=== PATIENT | female | born 1965 | race Caucasian/White ===

== ENCOUNTER → 2020-03-23 08:57 | Outpatient (BNVA) | payer MEDICARE, SELFPAY | PROVIDERS: Family Provider Nurse Practitioner; PCP Nurse Practitioner Family; Visit Provider Emergency Medicine | DX: Z20.828 Contact with and (suspected) exposure to other viral communicable diseases (principal) | CPT/HCPCS: 87635 ==

== ENCOUNTER → 2022-09-30 13:14 | Outpatient (BNVA) | payer MEDICARE, MEDICAID, SELFPAY | PROVIDERS: PCP Nurse Practitioner Family; Visit Provider Internal Medicine | DX: E04.1 Nontoxic single thyroid nodule (principal) | CPT/HCPCS: 71046 ==

== ENCOUNTER 2023-11-11 20:36 | Emergency (ER) | payer MEDICARE, MEDICAID, SELFPAY ==
[2023-11-11 20:37] VITALS: BP 155/76; PULSE 130; RESP 18; TEMP 37.2; O2SAT 93; BMI 30.7
--- NOTE | 2023-11-11 21:03 | XRR_ITS ---
PROCEDURE INFORMATION: Exam: XR Cervical Spine Exam date and time: 11/11/2023 9:11 PM Age: 58 years old Clinical indication: Neck pain; Prior surgery; Surgery date: 6+ months; Surgery type: C. Spine; Additional info: Pain no trauma TECHNIQUE: Imaging protocol: Radiologic exam of the cervical spine. Views: 2 or 3 views. COMPARISON: MR cervical spin wo con* [id number] 11/28/2017 1:46 PM FINDINGS: Bones/joints: Surgical changes of C3-C4 and C5-C7 ACDF with anatomic alignment and no hardware complications. Soft tissues: Unremarkable. XR/XR cervical spine 3V* [id number] IMPRESSION: No acute fracture or dislocation. Surgical changes of ACDF with no complications.
[2023-11-11] MEDS: ketorolac 30 mg/mL INJ IVP (21:06)
--- NOTE | 2023-11-11 21:06 | ED_ITS ---
HPI - Nausea/Vomiting/Diarrhea General: Chief complaint: Nausea/Vomiting/Diarrhea Stated complaint: generalized pain Time Seen by Provider: 11/11/23 20:47 History of Present Illness: Patient presents to the ER today with complaints of nausea vomiting neck pain and headache that started approximately 1 hour after she saw a possible brown recluse spider in her shoe she is on for sure if she got bit by a spider or not. 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 Patient also complains of nausea vomiting and pain all over her body. Patient denies any fevers chills coughs colds sore throats. Patient does admit to snorting meth yesterday evening. Review of Systems General: Reports: 10 or more systems reviewed and unremarkable except in HPI and below PFSH ED PFSH: Social History Smoking and tobacco/nicotine status: current every day tobacco/nicotine user cigarettes Alcohol intake: never Substance/Drug Use: never Physical Exam Const: COMMON NORMALS: no acute distress, average body habitus, patient oriented x3, no limitations, healthy appearing, alert and well nourished OTHER: Histrionic in appearance with moaning and crying out and yelling stating she is in so much pain even when the nurses are attempting her IV HENMT: COMMON NORMALS: normocephalic, atraumatic, hearing grossly normal bilaterally, external ears normal, Normal external nose present, moist oral mucous membranes and oropharynx normal HEAD & SCALP: normocephalic and atraumatic NOSE: Normal external nose present EXTERNAL EAR: Yes external ears normal Eye: COMMON NORMALS: Equal, round and reactive pupils present, EOMs intact bilaterally, conjunctivae normal and no scleral icterus CONJUNCTIVA: Yes conjunctivae normal PUPIL: Yes Equal, round and reactive pupils present Neck/C-Spine: COMMON NORMALS: full ROM, no lymphadenopathy, supple, no meningeal signs, no JVD and Thyroid normal THYROID: Thyroid normal OTHER: Muscles are soft None spastic no vertebral point tenderness Chest: COMMONS NORMALS: normal inspection of the chest and normal palpation of entire chest wall Resp: COMMON NORMALS: normal respiratory effort, No retractions, No use of accessory muscles and clear to auscultation bilaterally AUSCULTATION: clear to auscultation bilaterally Cardio: COMMON NORMALS: no JVD, regular rate, regular rhythm, S1 normal heart sound present, S2 normal heart sound present, No gallops present (Cardio), No clicks present (Cardio), No murmurs present (Cardio) and No rub (Cardio) RATE: regular rate RHYTHM: regular rhythm HEART SOUNDS: S1 normal heart sound present and S2 normal heart sound present GI: COMMON NORMALS: Normal to inspection, nondistended, normoactive bowel sounds present, Soft to palpation, non-tender, No hepatosplenomegaly present and no masses PALPATION: Yes Soft to palpation and Yes No hepatosplenomegaly present Extremity: NARRATIVE EXTREMITY EXAM: All toes on right foot normal in appearance no redness swelling erythema drainage or obvious puncture bite evelyn Neuro: COMMON NORMALS: patient oriented x3 SENSORIUM/ORIENTATION: Yes alert MENINGEAL SIGNS: Yes no meningeal signs Course Vital Signs: Vital signs: Vital Signs Temperature 99.0 F 11/11/23 20:37 Pulse Rate 109 H 11/11/23 22:00 Respiratory Rate 18 11/11/23 22:00 Blood Pressure 92/52 11/11/23 22:00 Pulse Oximetry 96 11/11/23 22:00 Oxygen Delivery Me thod Room Air 11/11/23 20:37 MDM - Nausea/Vomiting/Diarrhea Medical Decision Making Physical exam was performed, cervical spine x-ray was performed with no acute changes, patient was given Toradol, Reglan, and Norflex, patient said these helped her pain the right before discharge she did ask for Tylenol which was given to her. Patient will be discharged home on meloxicam and promethazine and is to follow-up with her PCP within 7 days. Differential Diagnosis Unlikely traveler's diarrhea, food poisoning, gastroenteritis, clostridium difficile infection, drug-induced nausea and vomiting or dehydration Medical Records I reviewed the patient's medical records. Lab Data I reviewed the patient's lab results. Radiology Impressions Cervical Spine X-Ray 11/11/23 21:03 IMPRESSION: No acute fracture or dislocation. Surgical changes of ACDF with no complications. All radiology interpretation(s) finalized by discharge Discharge Plan Discharge Patient Disposition: Home Clinical Impression: Acute neck pain, Nausea & vomiting Condition: Stable Prescriptions: New meloxicam 7.5 mg tablet 7.5 mg PO .Twice daily Qty: 14 0RF promethazine 25 mg tablet 25 mg PO Q6H PRN (Reason: nausea and vomiting) Qty: 14 0RF No Action ibuprofen 800 mg tablet 800 mg PO TID PRN (Reason: pain) Qty: 20 0RF Discharge Orders: Discharge ED (Routine); Ordered 11/11/23 Ordered By: Johnny Farley Referrals: Richards,[facility]ome LEAD GENERATION REPRESENTATIVE [Primary Care Provider] - 1 week Patient Instructions: Pain Management, Neck Pain (ED), Acute Nausea and Vomiting (ED) Activity Restrictions/Additional Instructions: Your x-ray showed no acute changes, physical exam did not show any obvious bite or infection to your toe. You are given pain medicine, muscle relaxers and nausea medicine in the ER. As well as prescription sent to your pharmacy. Please take these as directed. Please follow-up with your family practice physician within the next 7 days for further evaluation and treatment. Coding Level of Care Code ED Marketing Analytics Lead for Ryan Giang
[2023-11-11] MEDS: metoclopramide 5 mg/mL SDV 2 mL 10 MG IVP (21:08)
[2023-11-11] MEDS: orphenadrine 30 mg/mL Inj 2 mL 60 MG IVP (21:09)
[2023-11-11 21:13] VITALS: BP 99/63; PULSE 130; RESP 20; O2SAT 95
[2023-11-11 21:30] VITALS: BP 95/74; PULSE 119; RESP 18; O2SAT 95
[2023-11-11 22:00] VITALS: BP 92/52; PULSE 109; RESP 18; O2SAT 96
[2023-11-11] MEDS: acetaminophen 500 mg Tablet 1000 MG PO (23:04)
== END 2023-11-11 23:19 | disposition home or self-care (01) ==
PROVIDERS: Emergency Provider Emergency Medicine; PCP Nurse Practitioner Family
DX: M54.2 Cervicalgia (principal); R11.2 Nausea with vomiting, unspecified; F17.210 Nicotine dependence, cigarettes, uncomplicated
CPT/HCPCS: 72040; 96374; 96375; 99284; J1885; J2360; J2765

== ENCOUNTER → 2024-05-17 19:25 | Outpatient (BNVA) | payer OTHER, MEDICAID, SELFPAY | PROVIDERS: PCP Nurse Practitioner Family | DX: R39.9 Unspecified symptoms and signs involving the genitourinary system (principal) | CPT/HCPCS: 81000 ==

== ENCOUNTER → 2024-06-26 18:10 | Outpatient (BNVA) | payer OTHER, SELFPAY | PROVIDERS: PCP Nurse Practitioner Family; Visit Provider Emergency Medicine | DX: R39.9 Unspecified symptoms and signs involving the genitourinary system (principal); Z72.51 High risk heterosexual behavior | CPT/HCPCS: 81000; 87086; 87491; 87591; 87661 ==

== ENCOUNTER 2025-02-25 13:00 | Emergency (ER) | payer MEDICARE, SELFPAY ==
--- OUTSIDE RECORDS SUMMARY | 2024-04-17 04:00 | XMS_ITS ---
Author Organization [facility] Address [address] [place] [address] Care Team Providers Care Coffin Maker Name Role Phone FIDELINA SANTOS MD Primary Care Provider Unavailabl e Sesar Capps Unavailable Migration, Provider Unavailable Unavailable REASON FOR VISIT EMR-Keron Encounters Encounter Location Date Provider Diagnosis Migrated_Facility 0 0 04/17/2024 Provider Migration Plan Of Treatment No Information Progress Notes * BERT BUCK MDOB:1965 ( 59 yo F)Acc No.[id number]:04/17/2024 Patient: Reece RENZO BERT Aram :1965 A ge:58 Y S ex:Female Address:[address] [place] [phone] Subjective: * Chief Complaints: * E MR-Keron * * Date:
--- OUTSIDE RECORDS SUMMARY | 2024-04-18 04:00 | XMS_ITS ---
Author Organization [facility] Address [address] [place] [address] Care Team Providers Care Upholstery Auto Trimmer Name Role Phone FIDELINA SANTOS MD Primary Care Provider Unavailabl e Sesar Capps Unavailable Migration, Provider Unavailable Unavailable Allergies Allergen (clinical drug ingredient) Drug/Non Drug Allergy documented on EMR Reaction Allergy Type Onset Date Status simvastatin Simvastatin , Drug Allergy Act bety REASON FOR VISIT EMR-Keron Encounters Encounter Location Date Provider Diagnosis Migrated_Facility 0 0 04/18/2024 Provider Migration Plan Of Treatment No Information Progress Notes * BERT BUCK MDOB:1965 ( 59 yo F)Acc No.[id number]:04/18/2024 Patient: Reece MULLER BERT M :1965 A ge:58 Y S ex:Female Address:[address] [place] [phone] Subjective: * Chief Complaints: * E MR-Keron * Allergies: S imvastatin: , - Allergy * * Date:
--- OUTSIDE RECORDS SUMMARY | 2024-06-18 18:30 | XMS_ITS ---
Author Organization [facility] Address [address] [address] Care Team Providers Care Dross Puller Name Role Phone [facility] Unavailable [phone] REASON FOR VISIT Sexual Health / Urinary, [...] Temperature Encounters Encounter Location Date Provider Diagnosis [facility] [address] [place] [address] 06/18/2024 [facility] Assessments Encounter Date [...] Notes * Melissa AYALADOB:1965 (59 yo F)Acc No.[id number]:06/18/2024 IMPORT Patient: Melissa SOTO Provider: Campbell SOTELO :1965 A ge:58 Y S ex:Female Date:06/18/2024 Phone: Address:[address] [place], [place] [phone] Subjective: * Chief Complaints: * 1 . [...] Procedure Codes: * Electronic signature of OTTONIEL [facility] on 02/25/2025 at 02:09 PM EDT Sign off status: Pending * Provider: Campbell DEL ANGEL [facility] Date: 1 08/19/2023 Generated for Kris garnett/Bonnie/Magnoliasmitting on: 0 02/25/2025 02:09 PM EDT History and Physical Notes * HPI (History of Present Illness) Category Sub-Category Detail Notes Category Not es TeleHealth Complaint History 58 year-old female, presents with yellow vaginal discharge for a duration of 4 weeks. Medications: No. Habits: No high risk sexual behavior. Risk Factors: No recent injury of genital area.
--- OUTSIDE RECORDS SUMMARY | 2024-06-19 11:00 | XMS_ITS ---
Author Organization [facility] Address [address] [place] [address] Care Team Providers Care Supervisor Capacitor Processing Name Role Phone [facility] Unavailable [phone] REASON FOR VISIT Sexual Health / Urinary, [...] Temperature Encounters Encounter Location Date Provider Diagnosis [facility] [address] [place] [address] 06/19/2024 [facility] Assessments Encounter Date Diagnosis (ICD [...] Notes * Melissa AYALADOB:1965 (59 yo F)Acc No.[id number]:06/19/2024 IMPORT Patient: Melissa SOTO Provider: Campbell DEL ANGEL HELIX :1965 A ge:58 Y S ex:Female Date:06/19/2024 Phone: Address:[address] [place], [place] [phone] Subjective: * Chief Complaints: * 1 . [...] Procedure Codes: * Electronic signature of [facility] on 02/25/2025 at 02:09 PM EDT Sign off status: Pending * Provider: Campbell DEL ANGEL [place] Date: 1 08/20/2023 Generated for Kris garnett/Bonnie/Edinitting on: 0 02/25/2025 02:09 PM EDT History [...]
--- OUTSIDE RECORDS SUMMARY | 2024-06-20 12:00 | XMS_ITS ---
Author Organization [facility] Address [address] [place] [address] Care Team Providers Care Analytics Analyst Name Role Phone [facility] Unavailable [phone] REASON FOR VISIT Sexual Health / Urinary, Patient requesting service from promotional campaign [employer] Encounters Encounter Location Date Provider Diagnosis [facility] [address] [place] [address] 06/20/2024 [facility] Plan Of Treatment No Information Progress Notes * Melissa AYALADOB:1965 (59 yo F)Acc No.[id number]:06/20/2024 IMPORT Patient: Melissa SOTO Provider: Campbell [facility] [place] :1965 A ge:58 Y S ex:Female Date:06/20/2024 Phone: Address:[address] [place] [phone] Subjective: * Chief Complaints: * 1 . [...] Procedure Codes: * Electronic signature of [facility] on 02/25/2025 at 02:09 PM EDT Sign off status: Pending * Provider: Campbell DEL ANGEL [place] Date: 1 08/21/2023 Generated for Kris garnett/Bonnie/Edinitting on: 0 02/25/2025 [...]
--- OUTSIDE RECORDS SUMMARY | 2024-06-24 04:45 | XMS_ITS ---
Author Organization [facility] Address [address] [place] [address] Care Team Providers Care Social Insurance Analyst Name Role Phone [facility] Unavailable [phone] REASON FOR VISIT Sexual Health / Urinary Encounters Encounter Location Date Provider Diagnosis [facility] [address] [place] [address] 06/24/2024 [facility] Plan Of Treatment No Information Progress Notes * Melissa AYALADOB:1965 (59 yo F)Acc No.[id number]:06/24/2024 IMPORT Patient: Melissa SOTO Provider: Campbell SOTEL[place] :1965 A ge:58 Y S ex:Female Date:06/24/2024 Phone: Address:[address] [place] [phone] Subjective: * Chief Complaints: * 1 . Sexual Health / Urinary. * Medical History: Objective: * Vitals: Assessment: Plan: * Treatment: * Billing Information: * Visit Code: * Procedure Codes: * Electronic signature of [facility] on 02/25/2025 at 02:10 PM EDT Sign off status: Pending * Provider: Campbell DEL ANGEL [place] Date: 0 06/24/2024 Generated for Kris garnett/Bonnie/eTransmitting on: 0 02/25/2025 02:10 PM EDT
--- OUTSIDE RECORDS SUMMARY | 2025-02-22 09:00 | XMS_ITS ---
Author Organization [facility] Address [address] [place] [address] Care Team Providers Care Laboratory Apparatus Glass Grinder Name Role Phone FIDELINA SANTOS MD Primary Care Provider Sesar Winters Unavailable Allergies Allergen (clinical drug ingredient) Drug/Non Drug Allergy documented on EMR Reaction Allergy Type Onset Date Status simvastatin Simvastatin , Drug Allergy Act bety REASON FOR VISIT LUMP LEFT SIDE NECK Medications Medication SIG (Take, Route, Frequency, Duration) Notes Start Date End Date Status ALPRAZolam 0.25 MG Tablet 1 tablet Orally every 8 hours prn; Duration: 10 days 05/24/2024 Not-Taking Fluticasone Propionate 50 MCG/ACT Suspension 1 spray in each nostril Nasally Twice a day Not-Taking Vilazodone HCl 10 MG Tablet 1 tablet with food Orally Once a day; Duration: 30 day(s) 05/24/2024 Not-Taking Bactrim DS 800-160 MG Tablet 1 tablet Orally twice a day Active Macrobid 100 MG Capsule 1 capsule with food Orally every 12 hrs Not-Taking Hydrocodone Hydrocodone 10/29/2017 Not-T aking Ondansetron 4 MG Tablet Disintegrating Oral Ondansetron 4 MG Disintegrating Tablet 12/29/2017 Not-Taking Ibuprofen Ibuprofen 10/29/2017 Not-Jon alvarez gabapentin 100 MG Oral Capsule gabapentin 100 MG Oral Capsule 10/29/2017 Not-Taking Aspirin 1000 MG / Caffeine 65 MG Oral Powder [BC Arthritis] Aspirin 1000 MG / Caffeine 65 MG Oral Powder [BC Arthritis] 10/29/2017 Not-Taking Benzonatate 100 MG Capsule 1 capsule Orally Three times a day Not-Taking Doxycycline Not-Candy garnett SEROquel Seroquel 10/29/2017 Not-Jon alvarez Cymbalta 30 MG Capsule Delayed Release Particles 1 capsule Orally Once a day; Duration: 30 day(s) 12/26/2021 Not-Taking Ondansetron HCl 4 MG Tablet 1 tablet Orally every 8 hours; Duration: 5 days as needed for nausea 12/26/2021 Not-Taking Metoprolol Tartrate 25 MG Tablet 1 tablet with food Orally Twice a day Not-Taking Ezetimibe 10 MG Tablet 1 tablet Orally Once a day Not-Taking Social History Tobacco Use: Social History Observation Description Date Details (start date - stop date) Current Smoker NA - NA Social History Depression Screening Social Info Question Answer Notes depression screening findings Findings Negative (0 -4) 02/22/25 PHQ-9 Little interest or p arthur in doing things Not at all Feeling down, depressed, or hopeless Not at all Trouble falling or staying asleep, or sleeping t oo much Nearly every day Feeling tired or having little energy Not at all Poor appetite or overeating Not at all Feeling bad about yourself, or that you are a failure, or have let yourself or your family down Not at all Trouble concentrating on thi ngs, such as reading the newspaper or watching television Not at all Moving or speaking so slowly that other people could have noticed. Or the opposite ? being so fidgety or restless that you have been moving around a lot more than usual Not at all Thoughts that you would be b jayshree off , or of hurting yourself in some way Not at all Total Score 3 Interpretation Minimal Depression Comprehensive Health Assessm ent Social Info Question Answer Notes *Social Determinants of Health Has lack of transportation kept you from medical appointments, meetings, work or from getting things needed for daily living? No Recently, have you worried t hat your food would run out before you got money to buy more? No Do you feel physically and emotionally safe wher e you currently live? Yes Are you worried about losing your housing? No Have you recently been shaunna rned that your utilities would be turned off (electricity, gas, or water)? No Tobacco Use: Social Info Question Answer Notes Tobacco Control (Standard) Tobacco use: Current smoker How often do you smoke cigarettes? Every day How many cigarettes a day do you smoke? 5 or less Additional Findings: Tobacco user e-cigarette Section Notes: 05/24/24 CIME Dep/tob - 9/2/25 Problems Problem Type SNOMED Code ICD Code Onset Dates Problem Status W/U Status Risk Notes Problem Supraclavicular mass (R22.2) Active confirmed Problem Tobacco user ([id number]) Nicotine dependence, cigarettes, uncomplicated (F17.210) Active confirmed Vital Signs Temperature 98 degrees Fahrenheit 02/22/2025 Blood pressure systolic 139 mm Hg 02/23/20 25 Blood pressure diastolic 80 mm Hg 025 Heart Rate 108 /min 02/22/2025 Height 68 in 02/22/2025 Weight 194 lbs 02/22/2025 BMI 29.49 kg/m2 02/22/2025 Oximetry 98 % 02/22/2025 Height-cm 172.72 cm 02/22/2025 Weight-kg 88 kg 02/22/2025 Encounters Encounter Location Date Provider Diagnosis [facility] [address] [place] [id number] 02/22/2025 Sesar Capps Depression screen Z13.31 ; Supraclavicular mass R22.2 ; Nicotine dependence, cigarettes, uncomplicated F17.210 ; Primary hypertension I10 and Tobacco abuse Z72.0 Assessments Encounter Date Diagnosis (ICD Code) Assessment Notes Treatment Notes Treatment Clinical Notes Section Notes 02/22/2025 Depression screen (ICD-10 - Z13.31) 02/22/2025 Supraclavicular mass (ICD-10 - R22.2) 02/22/2025 Nicotine dependence, cigarettes, uncomplicated (ICD-10 - F17.210) I spent 3 minutes on tobacco cessation counseling. Patient is not willing to attempt cessation. I will continue to director of counseling and educate patient in future appointments about the harm and risks of tobacco abuse. I have discussed different medication options with patient today including chantix, wellbutrin, patches, gum and the process of slowly cutting back on nicotine. 02/22/2025 Primary hypertension (ICD-10 - I10) Pt advised to take meds as prescribed, exercise as tolerated, and monitor BP as directed. If symptoms develop, parameters out of range, or any distress contact clinic or utilize ER. 02/22/2025 Tobacco abuse (ICD-10 - Z72.0) Plan Of Treatment Treatment Notes Assessment Notes Nicotine dependence, cigaret kacy, uncomplicated I spent 3 minutes on tobacco cessation counseling. Patient is not willing to attempt cessation. I will continue to director of counseling and educate patient in future appointments about the harm and risks of tobacco abuse. I have discussed different medication options with patient today including chantix, wellbutrin, patches, gum and the process of slowly cutting back on nicotine. Primary hypertension Pt advised to take meds as prescribed, exercise as tolerated, and monitor BP as directed. If symptoms develop, parameters out of range, or any distress contact clinic or utilize ER. Pending Test Test Name Order Date Comprehensive Metabolic Panel (CMP) 8005 3 02/22/2025 CT Chest w/ Contrast diagnostic-15399 Next Appt Details Follow Up: after CT, Reason: History and Physical Notes * Examination Category Sub-Category Detail Notes Category Not es General Examination GENERAL APPEARANCE: alert, w ell hydrated, in no distress, converses well NECK/THYROID: firm tender supracla vicular mass on the left . No redness. HEART: Regular rate and rhy thm, S1 S2 normal LUNGS: Nonlabored respirati on Form Completion: Enchilada Maker Assessment Com plete:: Yes Assessment Form Scanned attached to [employer] ress Note:: Yes Progress Notes * BERT BUCK MDOB:1965 ( 59 yo F)Acc No.[id number]:02/22/2025 Patient: Reece MULLER BERT M Provider: Katey Capps MD :1965 A ge:59 Y S ex:Female Date:02/22/2025 Address:[address] [place], [place] [id number] Pcp:FIDELINA SANTOS MD Check Out:02:27 PM YARROW GATHERER Subjective: * Chief Complaints: * L UMP LEFT SIDE NECK * HPI: P atient Complaints: Patient here for Lump on Left side of neck for about a week - hard in the middle - tender to touch - worse when she leans her head back - radiates across her chest - stinging and burning -currently taking Bactrim 800-160 BID. * ROS: G eneral/Constitutional: Patient denies f atigue , fever , night sweats. ? H ematology: Patient denies e asy bruising , bleeding problems , recent transfusion. R espiratory: Patient denies c ough , shortness of breath , wheezing.? C ardiovascular: Patient denies c hest pain , irregular heartbeat , swelling in hands/feet. G astrointestinal: Patient denies a bdominal pain, bloating , constipation , diarrhea , heartburn , blood in stool , nausea , vomiting. G enitourinary: Patient denies p ainful urination , blood in the urine , difficulty urinating. E NT: Patient denies e ar pain , nosebleed, runny nose, s ore throat. M usculoskeletal: Patient denies a rthritis\arthralgia , back pain , joint stiffness , muscle aches. S kin: Patient denies s kin lesion(s) , rash , acne. ? N eurologic: Patient denies d izziness , fainting , headache , memory loss , seizures. P sychiatric: Patient denies a nxiety , depressed mood , difficulty sleeping , suicidal thoughts. L ump L side of neck. * Medical History: Problem:Anxiety (finding) , Status :: Active Problem:Arthritis (disorder) , Status :: Active Problem:At risk for falls (finding) , Status :: Active Problem:Bipolar disorder (disorder) , Status :: Active Problem:Gastroesophageal reflux disease (disorder) , Status :: Active Problem:Hypercholesterolemia (disorder) , Status :: Active Problem:Irregular heart beat (finding) , Status :: Active Problem:Malignant neoplastic disease (disorder) , Status :: Active Problem:Obesity (disorder) , Status :: Active Problem:Posttraumatic stress disorder (disorder) , Status :: Active Problem:Sexually transmitted infectious disease (disorder) , Status :: Active Problem:Tobacco user (finding) , Status :: Active Urinary tract infection Endometriosis Medical History Verified * Surgical History: several spinals total knee c section breast revision hysterectomy Surgical History verified. * Hospitalization/Major Diagno stic Procedure: No Hospitalization Documented. Hospitalization Verified. * Family History: F ather: alive, heart, abdominal aortic aneurysmn, anxiety. M other: , colon cancer. F amily History Verified.. mom huntingtons, cancer, diabetes, high cholestlerol,. * Social History: T obacco Use: T obacco Control (Standard) T obacco use: C urrent smoker H ow often do you smoke cigarettes? E very day H ow many cigarettes a day do you smoke? 5 or less A dditional Findings: Tobacco user e -cigarette D epression Screening: P HQ-9 L ittle interest or pleasure in doing things?Not at all F eeling down, depressed, or hopeless N ot at all T rouble falling or staying asleep, or sleeping too much N early every day F eeling tired or having little energy N ot at all P oor appetite or overeating N ot at all F eeling bad about yourself, or that you are a failure, or have let yourself or your family down N ot at all T rouble concentrating on things, such as reading the newspaper or watching television N ot at all M oving or speaking so slowly that other people could have noticed. Or the opposite ? being so fidgety or restless that you have been moving around a lot more than usual N ot at all T houghts that you would be better off , or of hurting yourself in some way N ot at all T otal Score 3 I nterpretation M inimal Depression Depression screening findings F indings N egative (0-4) 02/22/25 C omprehensive Health Assessment: * Social Determinants of Health H as lack of transportation kept you from medical appointments, meetings, work or from getting things needed for daily living? N o R ecently, have you worried that your food would run out before you got money to buy more? N o D o you feel physically and emotionally safe where you currently live? Y es A re you worried about losing your housing??No H ave you recently been concerned that your utilities would be turned off (electricity, gas, or water)? N o S ocial History Verified. 1 07/25/23 CIME Dep/tob - 02/22/25. * Medications: T akingBactrim DS 800-160 MG Tablet 1 tablet Orally twice a day Taking Bactrim DS 800-160 MG Tablet 1 tablet Orally twice a day Not-TakingMacrobid 100 MG Capsule 1 capsule with food Orally every 12 hrs Vilazodone HCl 10 MG Tablet 1 tablet with food Orally Once a day ALPRAZolam 0.25 MG Tablet 1 tablet Orally every 8 hours prn Fluticasone Propionate 50 MCG/ACT Suspension 1 spray in each nostril Nasally Twice a day Metoprolol Tartrate 25 MG Tablet 1 tablet with food Orally Twice a day Ezetimibe 10 MG Tablet 1 tablet Orally Once a day Benzonatate 100 MG Capsule 1 capsule Orally Three times a day Doxycycline Cymbalta 30 MG Capsule Delayed Release Particles 1 capsule Orally Once a day Ondansetron HCl 4 MG Tablet 1 tablet Orally every 8 hours , Notes to Pharmacist: as needed for nauseaSEROquel , Notes to Pharmacist: SeroquelIbuprofen , Notes to Pharmacist: Ibuprofengabapentin 100 MG Oral Capsule , Notes to Pharmacist: gabapentin 100 MG Oral CapsuleHydrocodone , Notes to Pharmacist: HydrocodoneOndansetron 4 MG Tablet Disintegrating Oral , Notes to Pharmacist: Ondansetron 4 MG Disintegrating TabletAspirin 1000 MG / Caffeine 65 MG Oral Powder [BC Arthritis] , Notes to Pharmacist: Aspirin 1000 MG / Caffeine 65 MG Oral Powder [BC Arthritis]Medication List reviewed and reconciled with the patientNot-Taking Macrobid 100 MG Capsule 1 capsule with food Orally every 12 hrs Not-Taking Vilazodone HCl 10 MG Tablet 1 tablet with food Orally Once a day Not-Taking ALPRAZolam 0.25 MG Tablet 1 tablet Orally every 8 hours prn Not-Taking Fluticasone Propionate 50 MCG/ACT Suspension 1 spray in each nostril Nasally Twice a day Not-Taking Metoprolol Tartrate 25 MG Tablet 1 tablet with food Orally Twice a day Not-Taking Ezetimibe 10 MG Tablet 1 tablet Orally Once a day Not-Taking Benzonatate 100 MG Capsule 1 capsule Orally Three times a day Not-Taking Doxycycline Not-Taking Cymbalta 30 MG Capsule Delayed Release Particles 1 capsule Orally Once a day Not-Taking Ondansetron HCl 4 MG Tablet 1 tablet Orally every 8 hours , Notes to Pharmacist: as needed for nauseaNot- Taking SEROquel , Notes to Pharmacist: SeroquelNot-Taking Ibuprofen , Notes to Pharmacist: IbuprofenNot-Taking gabapentin 100 MG Oral Capsule , Notes to Pharmacist: gabapentin 100 MG Oral CapsuleNot-Taking Hydrocodone , Notes to Pharmacist: HydrocodoneNot-Taking Ondansetron 4 MG Tablet Disintegrating Oral , Notes to Pharmacist: Ondansetron 4 MG Disintegrating TabletNot-Taking Aspirin 1000 MG / Caffeine 65 MG Oral Powder [BC Arthritis] , Notes to Pharmacist: Aspirin 1000 MG / Caffeine 65 MG Oral Powder [BC Arthritis]Medication List reviewed and reconciled with the patient * Allergies: S imvastatin: , - AllergyyesAllergies Verified. Objective: * Vitals: H t: 68 in, Wt:194lbs, Wt-k kg, BMI:29.49Index, Temp:98F, BP:139/80mm Hg, HR:108/min, Oxygen sat %:98%, O2 Source: RA, Pain scale: 5 1-10, Ht-cm: 172.72 cm. * Examination: G eneral Examination: GENERAL APPEARANCE: a lert, well hydrated, in no distress, converses well. NECK/THYROID: f irm tender supraclavicular mass on the left . No redness. HEART: R egular rate and rhythm, S1 S2 normal. LUNGS: N onlabored respiration. Form Completion: ? Assessment Form Scan joanne attached to Progress Note: Y es ? Assessment: * Assessment: 1. S upraclavicular mass - R22.2 (Primary) 2 . N icotine dependence, cigarettes, uncomplicated - F17.210 3 . D epression screen - Z13.31 4 . P rimary hypertension - I10 5 . T obacco abuse - Z72.0 Plan: * Treatment: 2. N icotine dependence, cigarettes, uncomplicated Notes: I spent 3 minutes on tobacco cessation counseling. Patient is not willing to attempt cessation. I will continue to director of counseling and educate patient in future appointments about the harm and risks of tobacco abuse. I have discussed different medication options with patient today including chantix, wellbutrin, patches, gum and the process of slowly cutting back on nicotine. 3. P rimary hypertension Notes: Pt advised to take meds as prescribed, exercise as tolerated, and monitor BP as directed. If symptoms develop, parameters out of range, or any distress contact clinic or utilize ER. ? * Procedure Codes: 3 079F DIAST BP 80-89 MM [id number] SYST BP GE 130 - 139MM [id number] BRIEF EMOTIONAL/BEHAV ASSMT * Preventive Medicine: Screenings: B REAST CANCER SCREENING: Date of most recent screenin C ERVICAL CANCER SCREENING: Date of the last PAP Smear : H ysterectomy 2000 C OLORECTAL CANCER SCREENING: Date of last colonoscopy 1 07/25/2007 D EPRESSION SCREENING: Date of most recent screenin 07/25/2023 V ACCINATIONS: Influenza vaccinations: D oes not take shot Counseling: T obacco use: Patient counseled on the dangers of smoking and urged to quit: 0 02/22/2025 Type of Tobacco Use Cessation Counseling provided S moking cessation education * Follow Up: a fter CT Billing Information: * Visit Code: 39289 Office Visit, Est Pt., Level 4. * Procedure Codes: 3079F DIAST BP 80-89 MM HG. 3075F SYST BP GE 130 - 139MM HG. [address]265 BRIEF EMOTIONAL/BEHAV ASSMT. * Electronic signature of Jie Capps MD on 02/25/2025 at 01:09 PM CDT Sign off status: Pending * Provider: Katey Capps MD Date: 02/22/2025 Generated for Kris garnett/Bonnie/Edinitting on: 02/25/2025 01:09 PM CDT
[2025-02-25] VITALS (7 sets, daily range): BP systolic 113–122; BP diastolic 73–83; PULSE 87–96; RESP 16–17; TEMP 36.7; O2SAT 93–97; BMI 31.4
--- OUTSIDE RECORDS SUMMARY | 2025-02-25 13:09 | XMS_ITS | Clinical Summary ---
Author Organization [facility] Address [address] [place] [address] Phone Care Team Providers Care Talent Acquisition Relationship Manager Name Role Phone Unavailable Primary Care Provider Unavailabl e Social History Tobacco Use Types Packs/Day Years Used Date Smoking Tobacco: Never Assessed Comments Unknown Sex and Gender Information Value Date Recorded Sex Assigned at Not on file Legal Sex Female 2:09 PM GRAVEL WEIGHER Gender Identity Not on file Sexual Orientation Not on file Plan of Treatment Not on file
--- OUTSIDE RECORDS SUMMARY | 2025-02-25 13:09 | XMS_ITS ---
Author Organization Unknown Problems Date Problem Result OnSetDate Icd10 SnomedCode Severity Cu stom 02/22/2025 00:00:00 Supraclavicular mass R22.2 [id number]
--- OUTSIDE RECORDS SUMMARY | 2025-02-25 13:10 | XMS_ITS | Patient Health Record ---
Author Organization [facility] Address [address] [place] [address] Care Team Providers Care Child Care Associate Name Role Phone FIDELINA SANTOS MD Primary Care Provider UnavailSesar Duncan Unavailable [phone] Lester Schmidt Unavailable [phone] Kurt Hardin Unavailable [phone] Migration, Provider Unavailable Unavailable Marlo Ulloa Unavailable [phone] Allergies Allergen (clinical drug ingredient) Drug/Non Drug Allergy documented on EMR Reaction Allergy Type Onset Date Status simvastatin Simvastatin , Drug Allergy Act bety Results Component Value Reference Range Notes Urinalysis--[id number] Reviewed date:05/24/2024 03:00:08 PM Interpretation: Performing Lab: Notes/Report: Specific gravity UA 1.025 Urine Nitrite - Urine Blood ++ Urine pH 5.0 Urine Glucose - Urine Leukocyte ++ Urine Protein - Urine Bilirubin + Urine Ketone - Urobilinogen 0.2 Colonoscopy, High Risk Scree clara-[id number] Reviewed date:06/15/2024 10:37:39 AM Interpretation: Performing Lab: Notes/Report: Diagnostic Colonoscopy-[id number] Reviewed date:06/17/2024 11:22:33 AM Interpretation: Performing Lab: Notes/Report: Reason For Referral No Information Medications Medication SIG (Take, Route, Frequency, Duration) Notes Start Date End Date Status ALPRAZolam 0.25 MG Tablet 1 tablet Orally every 8 hours prn; Duration: 10 days 05/24/2024 Not-Taking Hydrocodone Hydrocodone 10/29/2017 Not-T aking Fluticasone Propionate 50 MCG/ACT Suspension 1 spray in each nostril Nasally Twice a day Not-Taking Ondansetron 4 MG Tablet Disintegrating Oral Ondansetron 4 MG Disintegrating Tablet 12/29/2017 Not-Taking Ibuprofen Ibuprofen 10/29/2017 Not-Takin g Vilazodone HCl 10 MG Tablet 1 tablet with food Orally Once a day; Duration: 30 day(s) 05/24/2024 Not-Taking gabapentin 100 MG Oral Capsule gabapentin 100 MG Oral Capsule 10/29/2017 Not-Taking Benzonatate 100 MG Capsule 1 capsule Orally Three times a day Not-Taking Doxycycline Not-Taki ng Metoprolol Tartrate 25 MG Tablet 1 tablet with food Orally Twice a day Not-Taking Aspirin 1000 MG / Caffeine 65 MG Oral Powder [BC Arthritis] Aspirin 1000 MG / Caffeine 65 MG Oral Powder [BC Arthritis] 10/29/2017 Not-Taking Ezetimibe 10 MG Tablet 1 tablet Orally Once a day Not-Taking Bactrim DS 800-160 MG Tablet 1 tablet Orally twice a day Active SEROquel Seroquel 10/29/2017 Not-Takin g Macrobid 100 MG Capsule 1 capsule with food Orally every 12 hrs Not-Taking Cymbalta 30 MG Capsule Delayed Release Particles 1 capsule Orally Once a day; Duration: 30 day(s) 12/26/2021 Not-Taking Ondansetron HCl 4 MG Tablet 1 tablet Orally every 8 hours; Duration: 5 days as needed for nausea 12/26/2021 Not-Taking Immunizations Vaccine Route Administration Date Status Comme nts Influenza (whole), CPT 12407 Inactive Unknown 03/30/2018 Administered Influenza (whole), CPT 28932 Inactive Unknown 10/29/2017 Administered Social History Tobacco Use: Social History Observation [...] all Total Score 3 Interpretation Minimal Depression Drugs/Alcohol: Social Info Question Answer Notes Alcohol Screen (Audit-C) Did you have a drink containing alcohol in the past year? No Points 0 Interpretation Negative Comprehensive Health Assessm ent Social Info Question [...] e-cigarette Section Notes: 05/24/24 CIME Dep/tob - 02/22/25 unknown unknown unknown unknown unknown 05/24/24 Problems Problem Type SNOMED Code ICD Code Onset Dates Problem Status W/U Status Risk Notes Problem Tobacco user (920435119) Nicotine dependence, cigarettes, uncomplicated (F17.210) Active confirmed Problem Dyspnea on exertion (84976345) PRIETO (dyspnea on exertion) (R06.09) Active confirmed Problem Thyroid nodule (916038728) Thyroid nodule (E04.1) Active confirmed Problem Degeneration of cervical intervertebral disc (91964973) Degenerative disc disease, cervical (M50.30) Active confirmed Problem Urinary tract infectious disease (13860975) UTI symptoms (R39.9) Active confirmed Problem Family History of Cancer of Colon (Situation) (506396292) Family history of colon cancer (Z80.0) Active confirmed Problem Tobacco abuse (9165409906) Tobacco abuse (Z72.0) Active confirmed Problem Sacroiliitis (00059084) Sacroiliitis (M46.1) Active confirmed Problem Degeneration of lumbar intervertebral disc (02155369) Degenerative disc disease, lumbar (M51.36) Active confirmed Problem Supraclavicular mass (R22.2) Active confirmed Problem Skin sensation disturbance (10274659) Arm paresthesia, left (R20.2) Active confirmed Problem Skin sensation disturbance (27888880) Arm paresthesia, right (R20.2) Active confirmed Problem Degeneration of thoracic intervertebral disc (54045980) Degenerative disc disease, thoracic (M51.34) Active confirmed Problem Skin sensation disturbance (27648252) Bilateral leg paresthesia (R20.2) Active confirmed Problem Osteoarthritis (857261483) 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) Active confirmed Problem Primary hypertension (22688964) Primary hypertension (I10) Active confirmed Vital Signs Heart Rate 108 /min 02/22/2025 Temperature 98 degrees Fahrenheit 02/22/2025 Height-cm 172.72 cm 02/22/2025 Blood pressure diastolic 80 mm Hg 02/22/2025 Oximetry 98 % 02/22/2025 Weight-kg 88 kg 02/22/2025 Height 68 in 02/22/2025 Blood pressure systolic 139 mm Hg 02/22/2025 Weight 194 lbs 02/22/2025 BMI 29.49 kg/m2 02/22/2025 Encounters Encounter Location Date Provider Diagnosis [facility] [address] [place] [phone] 02/22/2025 Sesar Capps Depression screen Z13.31 ; Supraclavicular mass R22.2 ; Nicotine dependence, cigarettes, uncomplicated F17.210 ; Primary hypertension I10 and Tobacco abuse Z72.0 [facility] [address] [place] [phone] 05/24/2024 Sesar Capps UTI symptoms R39.9 ; Family history of colon cancer Z80.0 and Depression screen Z13.31 [facility] [place] [address] 06/09/2024 Sesar Capps Family history of colon cancer Z80.0 and Encounter for screening for malignant neoplasm of colon Z12.11 [facility] 0 04/17/2024 Provider Migration [facility] 0 04/18/2024 Provider Migration [facility] [address] [place] [phone] [facility]03[facility]2024 [facility] [place] [address] [place] [address] 04/12/2024 Kurt Hardin [facility] [place] [address] [address] 05/20/2024 Lester Youngley [facility] [address] [place] [address] 06/19/2024 Marlo Artemio [facility] [address] [place] [address] 07/04/2024 [facility] [address] [place] [address] 07/06/2024 [facility] [address] [place] [address] 02/24/2025 [facility] [address] [address] 02/24/2025 [facility] Assessments Encounter Date Diagnosis (ICD Code) Assessment Notes Treatment Notes Treatment Clinical Notes Section Notes 06/09/2024 Family history of colon cancer (ICD-10 - Z80.0) 06/09/2024 Encounter for screening for malignant neoplasm of colon (ICD-10 - Z12.11) 02/22/2025 Depression screen (ICD-10 - Z13.31) 02/22/2025 Supraclavicular mass (ICD-10 - R22.2) 02/22/2025 Nicotine dependence, cigarettes, uncomplicated (ICD-10 - F17.210) I spent 3 minutes on tobacco cessation counseling. Patient is not willing to attempt cessation. I will continue to middle school counselor and educate patient in future appointments about the harm and risks of tobacco abuse. I have discussed different medication options with patient today including chantix, wellbutrin, patches, gum and the process of slowly cutting back on nicotine. 05/24/2024 UTI symptoms (ICD-10 - R39.9) 05/24/2024 Family history of colon cancer (ICD-10 - Z80.0) -x-- to be completed at [facility] ---to be completed at [facility] ---to be completed at [facility] ---[facility] at [facility] 05/24/2024 Depression screen (ICD-10 - Z13.31) 02/22/2025 Primary hypertension (ICD-10 - I10) Pt advised to take meds as prescribed, exercise as tolerated, and monitor BP as directed. If symptoms develop, parameters out of range, or any distress contact clinic or utilize ER. 02/22/2025 Tobacco abuse (ICD-10 - Z72.0) 06/09/2024 Other see scanned document from [facility] in patients documents. Plan Of Treatment Pending Test Test Name Order Date Comprehensive Metabolic Panel (CMP) 8005 3 02/22/2025 Sedimentation Rate 55404 12/23/2023 Sedimentation Rate 49376 01/27/2024 CRP 19683 12/23/2023 CRP 16639 01/27/2024 Cervical Spine w/ Obl/Flex/Ext Comp-7205 2 12/25/2021 CT Chest w/ Contrast diagnostic-78873 Lumbosacral Spine Comp w/ Bending-73007 12/25/2021 MRI Cervical Spine w/o Cont-67469 2021 MRI Cervical Spine w/o Cont-86225 2023 MRI Cervical Spine w/o Cont-18414 2023 MRI Lumbar Spine w/o Cont-10906 12/26/19 MRI Thoracic Spine w/o Cont-40307 2021 MRI Thoracic Spine w/o Cont-79022 2023 MRI Thoracic Spine w/o Cont-85800 2023 Thoracic Spine AP/Lat-41092 12/25/2021 XR Outside CD 11/11/2023 Schedule Confirmation 01/27/2024 Schedule Confirmation 01/27/2024 Schedule Confirmation 01/27/2024 Schedule Confirmation 01/27/2024 Insurance Providers Payer Name Payer Address Payer Phone Subscriber Number Group Number Insured Name Patient Relationship to Insured Coverage Start Date Coverage End Date [employer] Medicare Replacemen t HMO (Self Pay) [address] [place] [facility] [address] [id number] BERT BUCK Self - patient is the insured [place] Medicaid [address] [place] [address] [id number] BERT BUCK Self - patient is the insured 4 4 Medical (General) History Medical History History ICD Code Problem:Anxiety (finding) , Status :: Ac tive Problem:Arthritis (disorder) , Status :: Active Problem:At risk for falls (finding) , [facility] atus :: Active Problem:Bipolar disorder (disorder) , St atus :: Active Problem:Gastroesophageal reflux disease (disorder) , Status :: Active Problem:Hypercholesterolemia (disorder) , Status :: Active Problem:Irregular heart beat (finding) , Status :: Active Problem:Malignant neoplastic disease (di sorder) , Status :: Active Problem:Obesity (disorder) , Status :: A ctive Problem:Posttraumatic stress disorder (d isorder) , Status :: Active Problem:Sexually transmitted infectious disease (disorder) , Status :: Active Problem:Tobacco user (finding) , Status :: Active urinary tract infection endometriosis Surgical History Surgery Date(Month/Year) several spinals total knee c section breast revision hysterectomy
--- OUTSIDE RECORDS SUMMARY | 2025-02-25 13:10 | XMS_ITS | Patient Health Record ---
Author Organization [facility] Address [address] [place] [address] Care Team Providers Care Exceptional Student Education Teacher Name Role Phone [facility] Unavailable [phone] LENIN LEAL Unavailable [phone] Allergies No Known Allergies Reason For Referral Reason Please evaluate and treat. Diagnosis 1 Cold sore (B00.1) Referral Organization [facility] Referring Provider First Name LENIN Referring Provider Last Name ELVIS Referring Provider Speciality General Pr actice Referred Provider Specialty Family Medic ine Referral Priority Routine Referral Appointment Date 04/13/2024 Medications Medication SIG (Take, Route, Frequency, Duration) Notes Start Date End Date Status valACYclovir HCl 1 GM 2 tablets Orally E very 12 hours; Duration: 1 days 04/13/2024 Active Meloxicam 7.5 MG TAKE 1 TABLET BY LADAN TH TWICE DAILY Oral; Duration: 7 Days Not-Taking Cyclobenzaprine HCl 10 MG TAKE 1 TABLET BY MOUTH ONCE DAILY AT BEDTIME NEEDED FOR MUSCLE SPASM Oral; Duration: 30 Days Not-Taking Naproxen 500 MG TAKE 1 TABLET BY LADAN TH WITH FOOD NEEDED FOR PAIN EVERY 12 HOURS FOR 30 DAYS Oral; Duration: 30 Days Not-Taking Promethazine HCl 25 MG TAKE 1 TABLET BY MOUTH EVERY 6 HOURS NEEDED FOR NAUSEA AND VOMITING Oral; Duration: 4 Days Not-Taking Social History Tobacco Use: Social History Observation Description Date Details (start date - stop date) Current Smoker NA - NA Tobacco Control (Standard) Question Answer Notes Tobacco use: Current smoker How often do you smoke cigarettes? Every day How many cigarettes a day do you smoke? 5 or les s Problems Problem Type SNOMED Code ICD Code Onset Dates Problem Status W/U Status Risk Notes Problem Cold sore (6151008) Cold sore (B00.1) Active confirmed Vital Signs Height 66 in 04/13/2024 Patient Reported Normal Blood Pressure Patient Reported Normal Temperature Weight 190 lbs 04/13/2024 Patient Reported Normal Blood Pressure Patient Reported Normal Temperature BMI 30.66 kg/m2 04/13/2024 Patient Reported Normal Blood Pressure Patient Reported Normal Temperature Encounters Encounter Location Date Provider Diagnosis [facility] [address] [place] [address] 04/13/2024 LENIN LEAL Cold sore B00.1 Assessments Encounter Date Diagnosis (ICD Code) Assessment Notes Treatment Notes Treatment Clinical Notes Section Notes 04/13/2024 Cold sore (ICD-10 - B00.1) TREATMENT PLAN: NEW DIAGNSIS COLD SORE (VALACYCLOVIR) Patient presents with cold sore. This patient has an unknown prior diagnosis, thus this will be treated as a first time occurrence of cold sore. 1. Will send valtrex 1 gram daily for 7-10 days. If >3-5 recurrences per year, consider chronic suppressive therapy. 2. Over the counter abreva (if not allergic) can be used as well in addition to valtrex .PATIENT EDUCATION: COLD SORES Cold sores are clusters of small blisters on the lip and skin around or inside the mouth. Often the first sign of a cold sore is a spot that tingles, cruz, or itches. A blister usually forms within 24 hours. They are sometimes called fever blisters. The skin around the blisters can be red and inflamed. The blisters can break open, weep a clear fluid, and then scab over after a few days. Cold sores often heal in 7 to 10 days with no scar. Cold sores are caused by the herpes simplex virus. The virus is spread by bhgz-he-pjsj contact. That means that if you have a cold sore and kiss another person, that person could get a cold sore too. This is the same virus that causes some cases of genital herpes. So if you have a cold sore and have oral sex with someone, that person could get a sore in the genital area. Cold sores will often go away on their own. But if they're painful, ask your doctor about a prescription antiviral medicine. It can relieve pain, help prevent outbreaks, and shorten the healing time. Follow-up care is a verduzco part of your treatment and safety. Be sure to make and go to all appointments, and call your doctor if you are having problems. It's also a good idea to know your test results and keep a list of the medicines you take. How can you care for yourself at home? Wash your hands often. And try not to touch your cold sores. This will help to avoid spreading the virus to your eyes or genital area or to other people. This is more likely to happen if this is your first cold sore outbreak. To help relieve pain, try placing a cold, wet towel on the sore. This can also reduce swelling. If you are just getting a cold sore, try using ibuv-gcf-lxcuooe docosanol (Abreva) cream to reduce symptoms. If your doctor prescribed antiviral medicine to relieve pain and shorten the healing time, be sure to follow the directions. Take an kckj-oqa-wmajofs pain medicine, such as acetaminophen (Tylenol), ibuprofen (Advil, Motrin), or naproxen (Aleve), as needed. Read and follow all instructions on the label. No one younger than 20 should take aspirin. It has been linked to Willard syndrome, a serious illness. Do not take two or more pain medicines at the same time unless the doctor told you to. Many pain medicines have acetaminophen, which is Tylenol. Too much acetaminophen (Tylenol) can be harmful. Avoid citrus fruit, tomatoes, and other foods that contain acid. Use xaad-wad-odftwdz ointments, such as Anbesol or Orajel, to numb sore areas in the mouth or on the lips. Do not kiss or have oral sex with anyone while you have a cold sore. To prevent cold sores in the future Avoid long exposure of your lips to sunlight. (Wear a hat to help shade your mouth.) Using lip balm that contains sunscreen may help reduce outbreaks of cold sores. Do not share towels, razors, silverware, toothbrushes, or other objects with a person who has a cold sore. For frequent or painful cold sores, try taking an antiviral medicine daily to decrease outbreaks. When should you call for help? Call your doctor now or seek immediate medical care if: Your symptoms are painful and you want to try antiviral medicine. You have signs of infection, such as: Increased pain, swelling, warmth, or redness. Red streaks leading from a cold sore. Pus draining from a cold sore. A fever. You have a cold sore and develop eye pain, eye discharge, or any changes in your vision. Watch closely for changes in your health, and be sure to contact your doctor if: The cold sore does not heal in 7 to 10 days. You get cold sores often. 04/13/2024 Other Follow the treatment plan as indicated by the provider. Take any medications as prescribed. If you have any questions about your prescription, ask the pharmacist. Call 911 anytime you think you may need emergency care. For example, call if:You have severe trouble breathing.You have a seizure.Call your doctor now or seek immediate medical care if:You have trouble breathing.You have a fever with a stiff neck or a severe headache.You have pain or pressure in your chest or belly.You have a fever or cough that returns after getting better.You feel very sleepy, dizzy, or confused.You are not urinating.You have severe muscle pain.You have severe weakness, or you are unsteady.You have medical conditions that are getting worse.Watch closely for changes in your health, and be sure to contact your doctor if:You do not get better as expected.You are having a problem with your medicine. You participated in a [employer] request, considered an asynchronous visit where you provide your symptoms and medical history, and a treatment plan is formulated based on your submission. A treatment plan and patient education were provided based on your submission. If symptoms persist or worsen, you should seek in-person care or call 911 immediately for further evaluation. 06/18/2024 AI TRIAGE SUGGESTED ASSESSMENTS: N76.0 - [...] confirm the diagnosis and initiate appropriate treatment. 06/19/2024 AI TRIAGE SUGGESTED ASSESSMENTS: N76.0 - [...] and initiate appropriate treatment. Plan Of Treatment Pending Test Test Name Order Date HERPES SIMPLEX VIRUS CULTURE W/RFL TO EDER LATIF (4436) 04/13/2024 Insurance Providers Payer Name Payer Address Payer Phone Subscriber Number Group Number Insured Name Patient Relationship to Insured Coverage Start Date Coverage End Date [employer] [address] [address] [place] [address] [id number] Melissa Ayala Self - patient is the insured
--- NOTE | 2025-02-25 13:40 | W.ED.SKABFB ---
HPI - Skin/Abscess/Foreign Bdy General: Chief complaint: Extremity Injury, Upper Stated complaint: L collar bone Mass painfull Time Seen by Provider: 02/25/25 13:06 Source: patient Mode of arrival: ambulatory Limitations: no limitations History of Present Illness: Patient is a 59-year-old female presents to ED today for complaints of a painful mass above her left clavicle. Patient states mass has been present over the past 2 weeks. She has seen her primary care provider Dr. Capps for this who is wanting outpatient CT imaging but they are having issues getting it approved through her insurance. She has also seen Dr. Cisneros at the walk-in clinic and completed a round of Bactrim which did not seem to make a difference. Patient states she feels fatigued. She feels like the pain surrounding the mass is increasing. She does complain of some mild nausea and abdominal pain that she attributes to the Bactrim use. She does state her mother of metastatic primary colon cancer. She is up-to-date on her colonoscopies. She denies weight loss. MD complaint: other (L supraclavicular mass) Onset (ago): week(s) Tetanus up to date: yes Location: neck Severity: moderate Pain Consistency: constant Relieving factors: none Exacerbating factors: other (movement of neck) Context: none Associated symptoms: Reports myalgias, nausea and other (fatigue); Deny chills, fever(s) or vomiting Treatments prior to arrival: none Related Data Previous Rx's ?Medication ?Instructions ?Recorded sulfamethoxazole 800 1 tab PO BID 10 days #20 tabs 02/19/25 mg-trimethoprim 160 mg tablet (Bactrim DS) hydrocodone 5 mg-acetaminophen 325 1 tab PO Q6H PRN pain #14 tabs 02/25/25 mg tablet Allergies Allergy/AdvReac Type Severity Reaction Status Date / Time acetaminophen (From Allergy Nausea Verified 02/19/25 18:33 Darvocet-N) propoxyphene (From Allergy Nausea Verified 02/19/25 18:33 Darvocet-N) simvastatin Allergy Hives Verified 02/19/25 18:33 Review of Systems Const: Reports: change in appetite and fatigue; Denies: fever(s), chills or body aches Eyes: Denies: change in vision Card: Denies: chest pain Resp: Denies: dyspnea GI: Reports: abdominal pain and nausea; Denies: vomiting, diarrhea, constipation or change in bowel habits : Denies: flank pain, difficulty voiding, dysuria, urinary frequency, urinary urgency or urinary hesitancy Musc: Reports: neck pain; Denies: back pain, extremity pain, extremity swelling, joint pain, joint swelling or joint redness Neuro: Denies: headache(s), numbness in extremities, weakness in extremities, sensory changes or dizziness PFSH ED PFSH: Social History Smoking and tobacco/nicotine status: current every day tobacco/nicotine user cigarettes Alcohol intake: never Substance/Drug Use: never Physical Exam Const: COMMON NORMALS: no acute distress, average body habitus, patient oriented x3, no limitations, healthy appearing, alert and well nourished GENERAL APPEARANCE: cooperative and anxious ORIENTATION/CONSCIOUSNESS: Yes awake, Yes oriented to person, Yes oriented to place and Yes oriented to time HENMT: COMMON NORMALS: normocephalic and atraumatic HEAD & SCALP: normal to inspection, normocephalic and atraumatic FACE & SINUS: normal facial exam Eye: GENERAL EYE: appearance normal, both eyes and all related structures Neck/C-Spine: COMMON NORMALS: no JVD and Thyroid normal GENERAL: Yes normal visual inspection THYROID: Thyroid normal NECK IMAGES:  1. fixed painful mass; no overlying skin changes Chest: COMMONS NORMALS: normal inspection of the chest and normal palpation of entire chest wall Resp: COMMON NORMALS: normal respiratory effort and clear to auscultation bilaterally AUSCULTATION: clear to auscultation bilaterally Cardio: COMMON NORMALS: no JVD, regular rate and regular rhythm RATE: regular rate RHYTHM: regular rhythm GI: COMMON NORMALS: Normal to inspection, nondistended, normoactive bowel sounds present, non-tender, No hepatosplenomegaly present and no masses INSPECTION: Yes normal to inspection AUSCULTATION: Yes normoactive bowel sounds PALPATION: Yes Tenderness to palpation present (GI) (mild diffuse tenderness), No Guarding due to palpation present (GI), No Rigid due to palpation and Yes No hepatosplenomegaly present : COMMON NORMALS: Yes no CVA tenderness BLADDER/KIDNEY EXAM: Yes no CVA tenderness Back/Pelvis: COMMON NORMALS: no CVA tenderness, thoracic and lumbar spine normal to inspection and no thoracic nor lumbar tenderness Extremity: GENERAL: Yes normal exam except as noted Neuro: COMMON NORMALS: patient oriented x3, moves all extremities, no focal motor deficits, no sensory deficits noted and gait normal SENSORIUM/ORIENTATION: Yes alert, Yes oriented to person, Yes oriented to place and Yes oriented to time Skin: NARRATIVE SKIN EXAM: L supraclavicular mass Course Vital Signs: Vital signs: Vital Signs Temperature 98.1 F 02/25/25 13:04 Pulse Rate 92 02/25/25 15:00 Respiratory Rate 16 02/25/25 16:27 Blood Pressure 113/73 02/25/25 14:30 Pulse Oximetry 97 02/25/25 16:27 Oxygen Delivery Me thod Room Air 02/25/25 15:00 MDM - Skin/Abscess/Foreign Bdy Medicial Decision Making Patient here with pain related to a large fixed mass near her left supraclavicular region. She has been treated with antibiotics without any resolution. Blood work here is nonactionable. Imaging of her neck as well as chest/abdomen/pelvis as masses here can be indicative of intra-abdominal malignancy. Radiologist did not see any obvious spread to her chest/abdomen/pelvis. She does have large left-sided cervical lymphadenopathy with differential including lymphoma, metastatic, and infectious disease. Recommending follow-up with ENT. Case management referral will be placed for this. Discussed probable need for biopsy. She does not give any history of tick bite, cat bite/scratch, concern for tularemia, or other clues in etiology. Medical Records I reviewed the patient's medical records. Lab Data I reviewed the patient's lab results. 02/25/25 14:00 02/25/25 14:00 Radiology Impressions Chest/Abdomen/Pelvis CT 02/25/25 13:41 IMPRESSION: 1. LEFT cervical chain lymphadenopathy. The largest lymph node measures 19 mm with extranodal extension. There is soft tissue infiltration in the supraclavicular region surrounding the lymph nodes. These may be inflammatory or neoplastic. 2. No lung mass or adenopathy in the chest. 3. No ascites. No abdominal or pelvic adenopathy. Limited visualization of the LEFT jugular vein and subclavian vein as the contrast was injected through the LEFT upper extremity. Ultrasound evaluation of the LEFT jugular vein and subclavian vein would rule out DVT. Consider follow-up neck CT with IV contrast. Consider PET/CT evaluation and ENT. Notified PATSY Zeng at 02/25/2025 2:[address] 02/25/25 14:47 IMPRESSION: Left level 5A cervical lymphadenopathy with inflammatory features. Differential diagnosis includes lymphoma, metastatic and infectious disease. Clinical correlation will be essential. Laboratory Results WBC 10.99 10^3/uL (3.29-11.43) 02/25/25 14:00 RBC 4.54 10^6/uL (3.85-5.65) 02/25/25 14:00 Hgb 13.90 g/dL (11.27-16.99) 02/25/25 14:00 Hct 42.0 % (36-47) 02/25/25 14:00 MCV 92.5 fl (85-98) 02/25/25 14:00 MCH 30.6 pg (27-33) 02/25/25 14:00 MCHC 33.1 g/dL (30-55) 02/25/25 14:00 RDW 13.0 % (12.1-15.1) 02/25/25 14:00 Plt Count 319 10^3/cmm (157-399) 02/25/25 14:00 MPV 10.1 fL (7.4-10.4) 02/25/25 14:00 Neut % (Auto) 59.0 % 02/25/25 14:00 Lymph % (Auto) 29.1 % 02/25/25 14:00 [place] % (Auto) 9.2 % 02/25/25 14:00 Eos % (Auto) 1.5 % 02/25/25 14:00 Baso % (Auto) 0.9 % 02/25/25 14:00 Neut # (Auto) 6.49 10^3/uL (1.8-7.7) 02/25/25 14:00 Lymph # (Auto) 3.2 10^3/uL (0.8-4.8) 02/25/25 14:00 [place] # (Auto) 1.0 10^3/uL (0.2-0.9) H 02/25/25 14:00 Eos # (Auto) 0.2 10^3/uL (0.0-0.8) 02/25/25 14:00 Baso # (Auto) 0.1 10^3/uL (0.0-0.1) 02/25/25 14:00 Nucleated RBC % (auto) 0 % 02/25/25 14:00 Nucleated RBCs # 0.0 /100WBC 02/25/25 14:00 Sodium 134 mmol/L (136-145) L 02/25/25 14:00 Potassium 4.6 mmol/L (3.5-5.1) 02/25/25 14:00 Chloride 99 mmol/L (98-107) 02/25/25 14:00 Carbon Dioxide 19 mmol/L (22-29) L 02/25/25 14:00 Anion Gap 20.6 (5-19) H 02/25/25 14:00 BUN 18 mg/dL (6-20) 02/25/25 14:00 Creatinine 1.0 mg/dL (0.5-0.9) H 02/25/25 14:00 GFR Calculation 57.1 mL/min (90-130) L 02/25/25 14:00 Glucose 94 mg/dL (65-115) 02/25/25 14:00 Calculated Osmolality 280 mOsm/kg (285-295) L 02/25/25 14:00 Calcium 9.7 mg/dL (8.5-10.5) 02/25/25 14:00 Total Bilirubin 0.3 mg/dL (0.15-1.2) 02/25/25 14:00 AST 14 U/L (0-32) 02/25/25 14:00 ALT 14 U/L (0-33) 02/25/25 14:00 Alkaline Phosphatase 164 U/L (35-105) H 02/25/25 14:00 Total Protein 8.3 g/dL (6.6-8.7) 02/25/25 14:00 Albumin 4.2 g/dL (3.5-5.2) 02/25/25 14:00 Globulin 4.1 g/dL (1.3-4.6) 02/25/25 14:00 All radiology interpretation(s) finalized by discharge Discharge Plan Discharge Patient Disposition: Home Clinical Impression: Mass of left side of neck Condition: Stable Prescriptions: New hydrocodone-acetaminophen 5-325 mg tablet 1 tab PO Q6H PRN (Reason: pain) Qty: 14 0RF No Action sulfamethoxazole-trimethoprim [Bactrim DS] 800-160 mg tablet 1 tab PO BID 10 Days Qty: 20 0RF Discharge Orders: Discharge ED (Routine); Ordered 02/25/25 Ordered By: Kaitlin Felder Patient Instructions: Patient Portal & Sade Instructions Activity Restrictions/Additional Instructions: As we discussed, I will place a case management referral to try to get you follow-up with the ENT for further evaluation which most likely will include a biopsy. You may continue to follow-up with primary care in the meantime. Print Language: Citizen [place] Coding Level of Care Code ED Assistant Spa Manager for Ryan Giang
--- NOTE | 2025-02-25 13:41 | CT_ITS ---
WS: [id number] CT CHEST, ABDOMEN AND PELVIS WITH CONTRAST HISTORY: scan through neck concern supraclavicular mass; malignancy? TECHNIQUE: Contiguous 5 mm axial imaging performed through the chest, abdomen and pelvis with IV contrast, oral contrast has Been provided. Coronal and sagittal reformats chest. Coronal and sagittal reformats through the abdomen and pelvis. All CT scans at [facility] use at least one of these dose optimization techniques: automated exposure control; mA and/or kV adjustment per patient size (includes targeted exams where dose is matched to clinical indication); or iterative reconstruction. CONTRAST: Omnipaque 350; 100 mL IV. DLP: 1174.33 mGy.cm COMPARISON: Prior CT abdomen/pelvis 11/04/[address]: Numerous enlarged pathologic lymph nodes along the LEFT cervical chain. The largest is 19 mm. There is surrounding hazy attenuation which may represent extranodal extension. There is significant artifact through the neck and supraclavicular region by patient's hardware and also the contrast injection being for the LEFT upper extremity venous system. LEFT jugular vein and LEFT SVC are not well visualized. Normal appearance of the aorta and the pulmonary artery. No pericardial or pleural effusions. Lungs are clear. No nodule, mass or pneumonia. No mediastinal or hilar or axillary adenopathy. Small hiatal hernia. Abdomen CT: Normal liver and spleen. Normal pancreas and gallbladder. No adrenal mass. No renal obstruction. Cortical cysts LEFT kidney. Atherosclerosis aorta. No GI tract obstruction. Mild diffuse constipation. No evidence for appendicitis. Pelvic CT: No free fluid. Urinary bladder is negative. No adenopathy in the pelvis. No destructive bone lesions. CT/CT chest abdpel w/*[id number] IMPRESSION: 1. LEFT cervical chain lymphadenopathy. The largest lymph node measures 19 mm with extranodal extension. There is soft tissue infiltration in the supraclavic ular region surrounding the lymph nodes. These may be inflammatory or neoplasti c. 2. No lung mass or adenopathy in the chest. 3. No ascites. No abdominal or pelvic adenopathy. Limited visualization of the LEFT jugular vein and subclavian vein as the contr ast was injected through the LEFT upper extremity. Ultrasound evaluation of the LEFT jugular vein and subclavian vein would rule out DVT. Consider follow-up n cecil CT with IV contrast. Consider PET/CT evaluation and ENT. Notified PATSY Zeng at 02/25/2025 2:52 PM.
[2025-02-25 14:16] LABS: Hematocrit 42.0 % (36-47); Hemoglobin 13.90 g/dL (11.27-16.99); Mean Corpuscular HGB Conc 33.1 g/dL (30-55); Mean Corpuscular Hemoglobin 30.6 pg (27-33); Mean Corpuscular Volume 92.5 fl (85-98); Nucleated Red Blood Cells % 0 %; Platelet Count 319 10^3/cmm (157-399); Red Blood Count 4.54 10^6/uL (3.85-5.65); White Blood Count 10.99 10^3/uL (3.29-11.43)
[2025-02-25] MEDS: iohexol 350 mg/mL 500 mL Btl (per mL) IV ×2 (14:17→15:48)
[2025-02-25] MEDS: ondansetron 2 mg/ML SDV 2 mL 4 MG IVP (14:18)
[2025-02-25] MEDS: morphine 4 mg/mL SDV 1 mL IVP ×2 (14:18→16:27)
[2025-02-25 14:32] LABS: Alanine Aminotransferase 14 U/L (0-33); Albumin Level 4.2 g/dL (3.5-5.2); Alkaline Phosphatase 164 U/L (35-105); Anion Gap 20.6 (5-19); Aspartate Amino Transferase 14 U/L (0-32); Blood Urea Nitrogen 18 mg/dL (6-20); Calcium 9.7 mg/dL (8.5-10.5); Carbon Dioxide 19 mmol/L (22-29); Chloride 99 mmol/L (98-107); Creatinine Clr Calc Pharmacy 69.5313; Globulin 4.1 g/dL (1.3-4.6); Glucose 94 mg/dL (65-115); Osmolality Calculated 280 mOsm/kg (285-295); Potassium 4.6 mmol/L (3.5-5.1); Sodium 134 mmol/L (136-145); Total Protein 8.3 g/dL (6.6-8.7)
--- NOTE | 2025-02-25 14:47 | CTR_ITS ---
PROCEDURE INFORMATION: Exam: CT Neck With Contrast Exam date and time: 02/25/2025 3:45 PM Age: 59 years old Clinical indication: Mass, lump, or swelling in neck; Left; Additional info: L neck mass TECHNIQUE: Imaging protocol: Computed tomography of the neck with contrast. Radiation optimization: All CT scans at this facility use at least one of these dose optimization techniques: automated exposure control; mA and/or kV adjustment per patient size (includes targeted exams where dose is matched to clinical indication); or iterative reconstruction. Contrast material: OMNI 350; Contrast volume: 80 ml; Contrast route: INTRAVENOUS (IV); COMPARISON: CR XR cervical spine 3V* [id number] 11/11/2023 9:11 PM RADIATION DOSE METRICS: Total DLP (mGy-cm): 304.46 FINDINGS: Tubes, catheters and devices: Status post successful ACDF from C3-C7 in what are most likely multiple procedures with plates, screws and interbody devices. Salivary glands: Normal. Glands are normal in size. Pharynx: Unremarkable. No significant tonsillar enlargement. Larynx: Unremarkable. Epiglottis is normal. Thyroid: Normal. No enlarged or calcified nodules. Trachea: Visualized trachea is unremarkable. Lungs: Unremarkable as visualized. Lymph nodes: There is an enlarged left side level 5A lymph node with a short axis diameter of approximately 1.8 cm and several smaller adjacent lymph nodes all surrounded by fat stranding and all in the level 5A zone. Scattered slightly enlarged but still subcentimeter level 3 and level 2 lymph nodes are also present on the left side of the neck. No axillary adenopathy. Bones/joints: Unremarkable. No acute fracture. Soft tissues: Unremarkable. No significant soft tissue swelling. CT/CT neck w con* [id number] IMPRESSION: Left level 5A cervical lymphadenopathy with inflammatory features. Differential diagnosis includes lymphoma, metastatic and infectious disease. Clinical correlation will be essential.
--- NOTE | 2025-03-01 10:03 | DCPLANNER ---
referral sent to ENT cecilia
== END 2025-02-25 16:53 | disposition home or self-care (01) ==
PROVIDERS: Emergency Provider Physician Assistant
DX: R22.1 Localized swelling, mass and lump, neck (principal); F17.210 Nicotine dependence, cigarettes, uncomplicated
CPT/HCPCS: 70491; 71260; 74177; 80053; 85025; 96361; 96374; 96375; 96376; 99285; J2270; J2405; J7030

== ENCOUNTER 2025-03-21 13:54 | Outpatient (CLI) | payer MEDICARE, SELFPAY ==
--- NOTE | 2025-03-21 13:58 | MM_ITS ---
WS: [id number] BILATERAL 3D TOMOSYNTHESIS DIGITAL SCREENING MAMMOGRAPHY WITH CAD CLINICAL INFORMATION: SCREENING HISTORY: Screening mammogram. COMPARISON: 2018 TECHNIQUE: Bilateral CC and MLO views. FINDINGS: Scattered fibroglandular densities bilaterally. No suspicious focal mass, asymmetry, calcifications, or architectural distortion. No evidence of malignancy. A few tiny incidental punctate calcifications. MM/MM scr tomosynthesis [id number] IMPRESSION: DENSITY: There are scattered areas of fibroglandular density. BI-RADS: 2 - Benign. FOLLOW UP: 1 Year Follow-up Recommend return to annual screening mammography.
== END 2025-03-21 13:55 | disposition home or self-care (01) ==
LOC: RAD 13:56
PROVIDERS: Visit Provider Internal Medicine
DX: Z12.31 Encounter for screening mammogram for malignant neoplasm of breast (principal); R92.323 Mammographic fibroglandular density, bilateral breasts; R92.1 Mammographic calcification found on diagnostic imaging of breast
CPT/HCPCS: 77063; 77067

== ENCOUNTER 2025-04-21 19:43 | Emergency (ER) | payer MEDICARE, SELFPAY ==
--- OUTSIDE RECORDS SUMMARY | 2024-04-17 04:00 | XMS_ITS ---
Author Organization [facility] Address [address] [place] [address] Care Team Providers Care Telephone Ad Taker Name Role Phone FIDELINA SANTOS MD Primary Care Provider Unavailabl e Sesar Capps Unavailable [phone] Migration, Provider Unavailable Unavailable REASON FOR VISIT EMR-Keron Encounters Encounter Location Date Provider Diagnosis Migrated_Facility 0 0 04/17/2024 Provider Migration Plan Of Treatment Next Appt Details Provider Name:Sesar Capps, 04/26/2025 03:20:00 PM, [address] [place] [address], [phone], Progress Notes * BERT BUCK MDOB:1965 ( 59 yo F)Acc No.[id number]:04/17/2024 Patient: Reece RENZO BERT M :1965 A ge:58 Y S ex:Female Address:[address] [place] [address] [place] [address] Subjective: * Chief Complaints: * E MR-Keron * * Date:
--- OUTSIDE RECORDS SUMMARY | 2024-04-18 04:00 | XMS_ITS ---
Author Organization [facility] Address [address] [place] [address] Care Team Providers Care Saw Man Name Role Phone FIDELINA SANTOS MD Primary Care Provider Unavailabl Sesar Solorzano Unavailable [phone] Migration, Provider Unavailable Unavailable Allergies Allergen (clinical drug ingredient) Drug/Non Drug Allergy documented on EMR Reaction Allergy Type Onset Date Status simvastatin Simvastatin , Drug Allergy Act bety REASON FOR VISIT EMR-Keron Encounters Encounter Location Date Provider Diagnosis Migrated_Facility 0 0 04/18/2024 Provider Migration Plan Of Treatment Next Appt Details Provider Name:Sesar Capps, 04/26/2025 03:20:00 PM, [address] [place] [address], [phone], Progress Notes * BERT BUCK MDOB:1965 ( 59 yo F)Acc No.[id number]:04/18/2024 Patient: Reece BERT MULLER :1965 A ge:58 Y S ex:Female Address:[address] [place] [phone] Subjective: * Chief Complaints: * E MR-Keron * Allergies: S imvastatin: , - Allergy * * Date:
--- OUTSIDE RECORDS SUMMARY | 2024-06-18 18:30 | XMS_ITS ---
Author Organization [facility] Address [address] [place] [address] Care Team Providers Care Clinical Registered Nurse Name Role Phone [facility] Unavailable [phone] REASON FOR VISIT Sexual Health / Urinary, [...] Temperature Encounters Encounter Location Date Provider Diagnosis [facility] [address] [place] [address] 06/18/2024 [facility] Assessments Encounter Date [...] Notes * Melissa AYALADOB:1965 (59 yo F)Acc No.[id number]:06/18/2024 IMPORT Patient: Melissa SOTO Provider: Campbell SOTELO :1965 A ge:58 Y S ex:Female Date:06/18/2024 Phone: Address:[address] [place], [place] [phone] Subjective: * Chief Complaints: * 1 . [...] Procedure Codes: * Electronic signature of OTTONIEL [facility] on 04/21/2025 at 08:49 PM EDT Sign off status: Pending * Provider: Campbell DEL ANGEL [facility] Date: 08/19/2023 Generated for Kris garnett/Bonnie/Magnoliasmitting on: 08:49 PM EDT History and Physical Notes * HPI (History of Present Illness) Category Sub-Category Detail Notes Category Not es TeleHealth Complaint History 58 year-old female, presents with yellow vaginal discharge for a duration of 4 weeks. Medications: No. Habits: No high risk sexual behavior. Risk Factors: No recent injury of genital area.
--- OUTSIDE RECORDS SUMMARY | 2024-06-19 11:00 | XMS_ITS ---
Author Organization [facility] Address [address] [place] [address] Care Team Providers Care Central Office Equipment Engineer Name Role Phone [facility] Unavailable [phone] REASON FOR VISIT Sexual Health / Urinary, [...] [facility] [address] [place] [address] 06/19/2024 [facility] Assessments Encounter Date Diagnosis [...] Notes * Melissa AYALADOB:1965 (59 yo F)Acc No.[id number]:06/19/2024 IMPORT Patient: Melissa SOTO Provider: Campbell DEL ANGEL HEL[place] :1965 A ge:58 Y S ex:Female Date:06/19/2024 Phone: Address:[address] [place], [place] [phone] Subjective: * Chief Complaints: * 1 . [...] Procedure Codes: * Electronic signature of [facility] on 04/21/2025 at 08:49 PM EDT Sign off status: Pending * Provider: Campbell DEL ANGEL [place] Date: 08/20/2023 Generated for Kris garnett/Bonnie/Edinitting on: 08:49 PM EDT History and Physical [...]
--- OUTSIDE RECORDS SUMMARY | 2024-06-20 12:00 | XMS_ITS ---
Author Organization [facility] Address [address] [place] [address] Care Team Providers Care Head Paper Tester Name Role Phone [facility] Unavailable [phone] REASON FOR VISIT Sexual Health / Urinary, Patient requesting service from promotional campaign [employer] Encounters Encounter Location Date Provider Diagnosis [facility] [address] [place] [address] 06/20/2024 [facility] Plan Of Treatment No Information Progress Notes * Melissa AYALADOB:1965 (59 yo F)Acc No.[id number]:06/20/2024 IMPORT Patient: Melissa SOTO Provider: Campbell [facility] [place] :1965 A ge:58 Y S ex:Female Date:06/20/2024 Phone: Address:[address] [place] [phone] Subjective: * Chief Complaints: * 1 . [...] Procedure Codes: * Electronic signature of [facility] on 04/21/2025 at 08:48 PM EDT Sign off status: Pending * Provider: Campbell DEL ANGEL [place] Date: 1 08/21/2023 Generated for Kris garnett/Bonnie/Gabbie on: 08:48 PM EDT History and Physical Notes * [...]
--- OUTSIDE RECORDS SUMMARY | 2024-06-24 04:45 | XMS_ITS ---
Author Organization [facility] Address [address] [place] [address] Care Team Providers Care Diploma Dental Assistant Name Role Phone [facility] Unavailable [phone] REASON FOR VISIT Sexual Health / Urinary Encounters Encounter Location Date Provider Diagnosis [facility] [address] [place] [address] 06/24/2024 [facility] Plan Of Treatment No Information Progress Notes * Melissa AYALADOB:1965 (59 yo F)Acc No.[id number]:06/24/2024 IMPORT Patient: Melissa SOTO Provider: Campbell SOTEL[place] :1965 A ge:58 Y S ex:Female Date:06/24/2024 Phone: Address:[address] [place] [phone] Subjective: * Chief Complaints: * 1 . Sexual Health / Urinary. * Medical History: Objective: * Vitals: Assessment: Plan: * Treatment: * Billing Information: * Visit Code: * Procedure Codes: * Electronic signature of [facility] on 04/21/2025 at 08:49 PM EDT Sign off status: Pending * Provider: Campbell DEL ANGEL [place] Date: 0 06/24/2024 Generated for Kris garnett/Bonnie/eTransmitting on: 08:49 PM EDT
[2025-04-21 19:48] VITALS: BP 127/76; PULSE 85; TEMP 36.8; O2SAT 96; BMI 30.8
--- OUTSIDE RECORDS SUMMARY | 2025-04-21 19:48 | XMS_ITS | Clinical Summary ---
Author Organization [facility] Address [address] 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
--- OUTSIDE RECORDS SUMMARY | 2025-04-21 19:49 | XMS_ITS | Patient Health Record ---
Author Organization [facility] Address [address] [place] [address] Care Team Providers Care Benzene Washer Operator Name Role Phone [facility] Unavailable [phone] Allergies No Known Allergies Reason For Referral No Information Medications Medication [...] W/U Status Risk Notes Problem Cold sore (8382256) Cold sore (B00.1) Active confirmed Assessments Encounter Date Diagnosis (ICD Code) Assessment [...] HERPES SIMPLEX VIRUS CULTURE W/RFL TO EDER SALOMON 2649) 04/13/2024 Insurance Providers Payer Name Payer Address Payer Phone Subscriber Number Group Number Insured Name Patient Relationship to Insured Coverage Start Date Coverage End Date [facility] [address] [address] [place] [id number] Melissa Ayala Self - patient is the insured
--- OUTSIDE RECORDS SUMMARY | 2025-04-21 19:49 | XMS_ITS | Patient Health Record ---
Author Organization [facility] Address [address] [place] [address] Care Team Providers Care Manager Care Name Role Phone FIDELINA SANTOS MD Primary Care Provider Sesar Winters Unavailable [phone] Lester Schmidt Unavailable [phone] Marlo Ulloa Unavailable [phone] Allergies Allergen (clinical drug ingredient) Drug/Non Drug Allergy documented on EMR Reaction Allergy Type Onset Date Status simvastatin Simvastatin , Drug Allergy Act bety Results Component Value Reference Range Notes Diagnostic Colonoscopy-[id number] Reviewed date:06/17/2024 11:22:33 AM Interpretation: Performing Lab: Notes/Report: Colonoscopy, High Risk Carlose clara-[id number] Reviewed date:06/15/2024 10:37:39 AM Interpretation: Performing Lab: Notes/Report: Urinalysis--[id number] Reviewed date:05/24/2024 03:00:08 PM Interpretation: Performing Lab: Notes/Report: Specific gravity UA 1.025 Urine Nitrite - Urine Blood ++ Urine pH 5.0 Urine Glucose - Urine Leukocyte ++ Urine Protein - Urine Bilirubin + Urine Ketone - Urobilinogen 0.2 Reason For Referral Reason open biopsy,, please 1st available Diagnosis 1 Supraclavicular mass (R22.2) Referral Organization [facility] Referring Provider First Name Caleb sampson Referring Provider Last Name Génesis Referring Provider Speciality Internal M edicine Referred Provider [facility] Referred Provider Specialty Surgery General Notes Meghan Carmichael 01:21:17 PM CDT > Faxed Amol Hernandez Lorrie 02/28/2025 02:58:52 PM CDT > faxed to [facility] - Dr Damon does not do biopsy's anymore, Meghan Carmichael 03/01/2025 08:50:26 AM CDT > All Dr's in [place] will not take patient - faxing to [facility] available, Yani Field 03/08/2025 08:29:15 AM CDT > PER FAX PT IS SCHEDULED 03-25 @ 1:30 WITH Emir BLACK Heidi 03/28/2025 08:15:30 AM CDT > PROGRESS NOTES IN REFERRAL FILE Referral Priority Routine Referral Appointment Date 03/25/2025 Medications Medication SIG (Take, Route, Frequency, Duration) Notes Start Date End Date Status Ibuprofen Ibuprofen 10/29/2017 Not-Takin g SEROquel Seroquel 10/29/2017 Not-Taksandra g ALPRAZolam 0.25 MG Tablet 1 tablet Orally every 8 hours prn; Duration: 10 days 03/14/2025 Active Ondansetron HCl 4 MG Tablet 1 tablet Orally Once a day; Duration: 30 days 02/28/2025 Active Vilazodone HCl 10 MG Tablet 1 tablet with food Orally Once a day; Duration: 30 day(s) 05/24/2024 Active gabapentin 100 MG Oral Capsule gabapentin 100 MG Oral Capsule 10/29/2017 Not-Taking Doxycycline Not-Taki ng Benzonatate 100 MG Capsule 1 capsule Orally Three times a day Not-Taking Bactrim DS 800-160 MG Tablet 1 tablet Orally twice a day Not-Taking Ondansetron HCl 4 MG Tablet 1 tablet Orally every 8 hours; Duration: 5 days as needed for nausea 12/26/2021 Not-Taking Cymbalta 30 MG Capsule Delayed Release Particles 1 capsule Orally Once a day; Duration: 30 day(s) 12/26/2021 Not-Taking Fluticasone Propionate 50 MCG/ACT Suspension 1 spray in each nostril Nasally Twice a day Not-Taking Ondansetron 4 MG Tablet Disintegrating Oral Ondansetron 4 MG Disintegrating Tablet 12/29/2017 Not-Taking Macrobid 100 MG Capsule 1 capsule with food Orally every 12 hrs Not-Taking Hydrocodone Hydrocodone 10/29/2017 Not-T aking Ezetimibe 10 MG Tablet 1 tablet Orally Once a day Not-Taking Metoprolol Tartrate 25 MG Tablet 1 tablet with food Orally Twice a day Not-Taking Aspirin 1000 MG / Caffeine 65 MG Oral Powder [BC Arthritis] Aspirin 1000 MG / Caffeine 65 MG Oral Powder [BC Arthritis] 10/29/2017 Not-Taking Immunizations Vaccine Route Administration Date Status Comme nts Influenza (whole), CPT 56511 Inactive Unknown 10/29/2017 Administered Influenza (whole), CPT 87505 Inactive Unknown 03/30/2018 Administered Social History Tobacco Use: Social History [...] Additional Findings: Tobacco user e-cigarette Section Notes: unknown unknown unknown unknown unknown 05/24/24 05/24/24 CIME Dep/tob - 02/22/25 05/24/24 CIME Dep/tob - 02/22/25 05/24/24 CIME Dep/tob - 02/22/25 Problems Problem Type SNOMED Code ICD Code Onset Dates Problem Status W/U Status Risk Notes Problem Tobacco user (193287598) Nicotine dependence, cigarettes, uncomplicated (F17.210) Active confirmed Problem Dyspnea on exertion (51733324) PRIETO (dyspnea on exertion) (R06.09) Active confirmed Problem Thyroid nodule (167125626) Thyroid nodule (E04.1) Active confirmed Problem Degeneration of cervical intervertebral disc (67975643) Degenerative disc disease, cervical (M50.30) Active confirmed Problem Urinary tract infectious disease (20440604) UTI symptoms (R39.9) Active confirmed Problem Family History of Cancer of Colon (Situation) (742207649) Family history of colon cancer (Z80.0) Active confirmed Problem Tobacco abuse (3169443235) Tobacco abuse (Z72.0) Active confirmed Problem Sacroiliitis (54895869) Sacroiliitis (M46.1) Active confirmed Problem Degeneration of lumbar intervertebral disc (00564741) Degenerative disc disease, lumbar (M51.36) Active confirmed Problem Supraclavicular mass (R22.2) Active confirmed Problem Skin sensation disturbance (38826780) Arm paresthesia, left (R20.2) Active confirmed Problem Skin sensation disturbance (70038316) Arm paresthesia, right (R20.2) Active confirmed Problem Degeneration of thoracic intervertebral disc (77898445) Degenerative disc disease, thoracic (M51.34) Active confirmed Problem Skin sensation disturbance (00595591) Bilateral leg paresthesia (R20.2) Active confirmed Problem Osteoarthritis (115002092) 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) Active confirmed Problem Primary hypertension (02778221) Primary hypertension (I10) Active confirmed Vital Signs Heart Rate 96 /min 03/14/2025 Temperature 98.2 degrees Fahrenheit 03/14/2025 Oximetry 96 % 03/14/2025 Blood pressure diastolic 78 mm Hg 03/14/2025 Height-cm 172.72 cm 03/14/2025 Weight-kg 88.91 kg 03/14/2025 Height 68 in 03/14/2025 Blood pressure systolic 125 mm Hg 03/14/2025 Weight 196 lbs 03/14/2025 BMI 29.8 kg/m2 03/14/2025 Encounters Encounter Location Date Provider Diagnosis [facility] [address] [address] 03/14/2025 Sesar Capps Aching headache R51.9 ; Abnormal finding of kidney R39.9 ; Incontinence in female R32 ; Depression screen Z13.31 and Supraclavicular mass R22.2 [facility] [address] [place] [address] 06/09/2024 Sesar Capps Family history of colon cancer Z80.0 and Encounter for screening for malignant neoplasm of colon Z12.11 [facility] [address] [address] 05/24/2024 Sesar Capps UTI symptoms R39.9 ; Family history of colon cancer Z80.0 and Depression screen Z13.31 [facility] [address] [address] 02/22/2025 Sesar Capps Supraclavicular mass R22.2 ; Nicotine dependence, cigarettes, uncomplicated F17.210 ; Primary hypertension I10 ; Tobacco abuse Z72.0 and Depression screen Z13.31 [facility] [address] [address] 02/28/2025 Sesar Capps Supraclavicular mass R22.2 and Depression screen Z13.31 [facility] [address] [address] 03/09/2025 Sesar Capps [facility] [address] [address] 03/09/2025 Sesar Capps [facility] [address] [address] 06/03/2024 Sesar Capps [facility] [address] [place] [address] 03/07/2025 Sesar Capps [facility] [address] [place] [address] 03/02/2025 Sesar Capps [facility] [address] [place] [address] 03/01/2025 Sesar Capps [facility] [address] [place] [address] 02/24/2025 Sesar Capps [facility] [address] [place] [address] 02/24/2025 Sesar Capsp [facility] [address] [place] [address] 07/06/2024 Sesar Capps [facility] [address] [place] [address] 07/04/2024 Sesar [facility] [address] [place] [address] 06/19/2024 Marlo Ulloa [facility] [address] [place] [address] 05/20/2024 Lester Schmidt [facility] [address] [place] [address] 04/10/2025 Sesar Capps [facility] [address] [place] [address] 04/06/2025 Sesar Capps Depression screen Z13.31 [facility] [address] [place] [address] 04/06/2025 Sesar Capps Supraclavicular mass R22.2 [facility] [address] [place] [address] 04/06/2025 Sesar Capps [facility] [address] [facility] [address] [place] [address] 03/29/2025 Sesar [facility] [address] [facility] [address] [place] [address] 03/26/2025 Sesar [facility] [address] [address] 03/11/2025 [facility] [address] [place] [address] 03/11/2025 [facility] [address] [address] 03/11/2025 [facility] Assessments Encounter Date Diagnosis (ICD Code) Assessment Notes Treatment Notes Treatment Clinical Notes Section Notes 05/24/2024 UTI symptoms (ICD-10 - R39.9) 05/24/2024 Family history of colon cancer (ICD-10 - Z80.0) -x-- to be completed at [facility] ---to be completed at [facility] ---to be completed at [facility] ---to be completed at [facility] 06/09/2024 Encounter for screening for malignant neoplasm of colon (ICD-10 - Z12.11) 06/09/2024 Family history of colon cancer (ICD-10 - Z80.0) 02/22/2025 Nicotine dependence, cigarettes, uncomplicated (ICD-10 - F17.210) I spent 3 minutes on tobacco cessation counseling. Patient is not willing to attempt cessation. I will continue to drug and alcohol counsellor and educate patient in future appointments about the harm and risks of tobacco abuse. I have discussed different medication options with patient today including chantix, wellbutrin, patches, gum and the process of slowly cutting back on nicotine. 02/28/2025 Supraclavicular mass (ICD-10 - R22.2) 03/14/2025 Aching headache (ICD-10 - R51.9) All patient's questions are encouraged and addressed to their apparent satisfaction. They are agreeable with the proposed plan of care and deny further needs or concerns. Patient is advised to take medications as prescribed. Patient agrees to contact the clinic with any new, worsening or increase of symptons. I am happy to see patient prior to next office visit as needed for acute concerns. 03/14/2025 Abnormal finding of kidney (ICD-10 - R39.9) 04/06/2025 Supraclavicular mass (ICD-10 - R22.2) 04/06/2025 Depression screen (ICD-10 - Z13.31) 02/22/2025 Supraclavicular mass (ICD-10 - R22.2) 02/22/2025 Primary hypertension (ICD-10 - I10) Pt advised to take meds as prescribed, exercise as tolerated, and monitor BP as directed. If symptoms develop, parameters out of range, or any distress contact clinic or utilize ER. 02/28/2025 Depression screen (ICD-10 - Z13.31) 03/14/2025 Incontinence in female (ICD-10 - R32) 05/24/2024 Depression screen (ICD-10 - Z13.31) 02/22/2025 Tobacco abuse (ICD-10 - Z72.0) 03/14/2025 Depression screen (ICD-10 - Z13.31) 03/14/2025 Supraclavicular mass (ICD-10 - R22.2) 02/22/2025 Depression screen (ICD-10 - Z13.31) 06/09/2024 Other see scanned document from [facility] in patients documents. Plan Of Treatment Pending Test Test Name Order Date Sedimentation Rate 64851 12/23/2023 Sedimentation Rate 49028 01/27/2024 CRP 97101 12/23/2023 CRP 04808 01/27/2024 Cervical Spine w/ Obl/Flex/Ext Comp-7205 2 12/25/2021 Lumbosacral Spine Comp w/ Bending-86470 12/25/2021 MRI Cervical Spine w/o Cont-39468 2023 MRI Cervical Spine w/o Cont-52944 2023 MRI Cervical Spine w/o Cont-74951 2021 MRI Lumbar Spine w/o Cont-45012 12/26/19 MRI Thoracic Spine w/o Cont-22544 2023 MRI Thoracic Spine w/o Cont-74819 2021 MRI Thoracic Spine w/o Cont-59631 2023 Thoracic Spine AP/Lat-99468 12/25/2021 XR Outside CD 11/11/2023 Schedule Confirmation 01/27/2024 Schedule Confirmation 01/27/2024 Schedule Confirmation 01/27/2024 Schedule Confirmation 01/27/2024 Next Appt Details Provider Name:Sesar Capps, 04/26/2025 03:20:00 PM, [address], [place], [address], Insurance Providers Payer Name Payer Address Payer Phone Subscriber Number Group Number Insured Name Patient Relationship to Insured Coverage Start Date Coverage End Date [employer] Medicare Replac[employer] t HMO (Self Pay) [address] [place] [address] [id number] BERT BUCK Self - patient is the insured [place] Medicaid [address] [place] [address] [id number] BERT BUCK Self - patient is the [...] Status :: Active urinary tract infection endometriosis Lump Left clavical Surgical History Surgery Date(Month/Year) several spinals total knee c section breast revision hysterectomy
== END 2025-04-21 21:03 | disposition left against medical advice (07) ==
PROVIDERS: Emergency Provider Emergency Medicine; PCP Internal Medicine
DX: Z53.21 Procedure and treatment not carried out due to patient leaving prior to being seen by health care provider (principal)

== ENCOUNTER 2025-05-22 05:53 | Emergency (ER) | payer MEDICARE, SELFPAY ==
--- OUTSIDE RECORDS SUMMARY | 2024-04-18 03:00 | XMS_ITS ---
Author Organization [facility] Address [address] [facility] [place] [address] Care Team Providers Care Paper Control Clerk Name Role Phone FIDELINA SANTOS MD Primary Care Provider Unavailabl Sesar Solorzano Unavailable Migration, Provider Unavailable Unavailable Allergies Allergen (clinical drug ingredient) Drug/Non Drug Allergy documented on EMR Reaction Allergy Type Onset Date Status Information temporarily unavailable Simvastatin , Drug Allergy Active REASON FOR VISIT EMR-Keron Encounters Encounter Location Date Provider Diagnosis Migrated_Facility 0 0 04/18/2024 Provider Migration Plan Of Treatment Next Appt Details Provider Name:Sesar Capps, 05/24/2025 01:20:00 PM, [address] [place] [address], [phone], Progress Notes * BERT BUCK MDOB:1965 ( 59 yo F)Acc No.[id number]:04/18/2024 Patient: Reece BERT MULLER :1965 A ge:58 Y S ex:Female Address:[address] [place] [phone] Subjective: * Chief Complaints: * E MR-Keron * Allergies: S imvastatin: , - Allergy * * Date:
--- OUTSIDE RECORDS SUMMARY | 2024-06-18 17:30 | XMS_ITS ---
Author Organization [facility] Address [address] [place] [address] Care Team Providers Care Door Assembler Name Role Phone [facility] Unavailable [phone] REASON FOR VISIT Sexual Health / Urinary, Patient requesting service from promotional campaign comp_healthcare Social History Tobacco Use: Social History Observation Description Date Details (start date - stop date) Current Smoker NA - NA Tobacco Control (Standard) Question Answer Notes Tobacco use: Current smoker How often do you smoke cigarettes? Every day How many cigarettes a day do you smoke? 5 or les s Vital Signs Height 66 in 06/18/2024 Weight 190 lbs 06/18/2024 BMI 30.66 kg/m2 06/18/2024 Patient Reported Normal Bloo d PressurePatient Reported Normal Temperature Encounters Encounter Location Date Provider Diagnosis [facility] [address] [place] [address] 06/18/2024 [facility] Assessments Encounter Date Diagnosis (ICD Code) Assessment Notes Treatment Notes Treatment Clinical Notes Section Notes 06/18/2024 AI TRIAGE SUGGESTED ASSESSMENTS: N76.0 - Acute vaginitis B96.89 - Other specified bacterial agents as the cause of diseases classified elsewhere A59.9 - Trichomoniasis, unspecified B37.9 - Candidiasis, unspecified N72 - Inflammatory disease of cervix uteri - -- --- AI TRIAGE CLINICAL REASONING: Based on the patient's history and symptoms, the differential diagnosis includes: 1. Bacterial vaginosis: Possible due to the yellow vaginal discharge. 2. Trichomoniasis: Should be considered due to the abnormal vaginal discharge and bleeding. 3. Candidiasis: Less likely as the patient denies vaginal itching and discomfort. 4. Cervicitis: Possible cause of abnormal vaginal bleeding. 5. Pelvic inflammatory disease (PID): Should be ruled out due to the abnormal vaginal bleeding. Further evaluation and diagnostic testing are recommended to confirm the diagnosis and initiate appropriate treatment. Plan Of Treatment No Information Progress Notes * Melissa AYALADOB:1965 (59 yo F)Acc No.[id number]:06/18/2024 IMPORT Patient: Melissa SOTO Provider: Campbell SOTELO :1965 A ge:58 Y S ex:Female Date:06/18/2024 Phone: Address:[address] [place], [place] [phone] Subjective: * Chief Complaints: * 1 . Sexual Health / Urinary. 2. Patient requesting service from promotional campaign comp_healthcare. * HPI: T eleHealth Complaint History: 58 year-old female, presents with yellow vaginal discharge for a duration of 4 weeks. Medications: No. Habits: No high risk sexual behavior. Risk Factors: No recent injury of genital area. * ROS: T he patient is also suffering from abnormal vaginal bleeding and vaginal discharge. The patient denies the following: vaginal burning, vaginal irritation, vaginal discomfort, unusual vaginal odor, vaginal dryness, irregular periods, bleeding unrelated to menstrual cycle, bleeding after intercourse, fever, pelvic pain, itching, rash and abdominal pain. * Medical History: H ellie May 25, 2012. * Social History: T obacco Use: T obacco Control (Standard) T obacco use: C urrent smoker H ow often do you smoke cigarettes? E very day H ow many cigarettes a day do you smoke? 5 or less D rugs/Alcohol: D o you drink alcohol?: No. Objective: * Vitals: H t: 66 in, Wt:190lbs, BMI:30.66Index. Patient Reported Normal Blood Pressure Patient Reported Normal Temperature. Assessment: * Assessment: AI TRIAGE SUGGESTED ASSESSME NTS: N76.0 - Acute vaginitis B96.89 - Other specified bacterial agents as the cause of diseases classified elsewhere A59.9 - Trichomoniasis, unspecified B37.9 - Candidiasis, unspecified N72 - Inflammatory disease of cervix uteri - - - --- AI TRIAGE CLINICAL REASONING: Based on the patient's history and symptoms, the differential diagnosis includes: 1. Bacterial vaginosis: Possible due to the yellow vaginal discharge. 2. Trichomoniasis: Should be considered due to the abnormal vaginal discharge and bleeding. 3. Candidiasis: Less likely as the patient denies vaginal itching and discomfort. 4. Cervicitis: Possible cause of abnormal vaginal bleeding. 5. Pelvic inflammatory disease (PID): Should be ruled out due to the abnormal vaginal bleeding. Further evaluation and diagnostic testing are recommended to confirm the diagnosis and initiate appropriate treatment. Plan: * Treatment: * Billing Information: * Visit Code: * Procedure Codes: * Electronic signature of [facility] on 05/22/2025 at 07:06 AM EST Sign off status: Pending * Provider: Campbell DEL ANGEL [facility] Date: 08/19/2023 Generated for Kris garnett/Bonnie/Magnoliasmitting on: 07/22/2024 07:06 AM EST History and Physical Notes * HPI (History of Present Illness) Category Sub-Category Detail Notes Category Not es TeleHealth Complaint History 58 year-old female, presents with yellow vaginal discharge for a duration of 4 weeks. Medications: No. Habits: No high risk sexual behavior. Risk Factors: No recent injury of genital area.
--- OUTSIDE RECORDS SUMMARY | 2024-06-19 10:00 | XMS_ITS ---
Author Organization [facility] Address [address] [place] [address] Care Team Providers Care Machine Boss Name Role Phone [facility] Unavailable [phone] REASON FOR VISIT Sexual Health / Urinary, [...] les s Vital Signs Height 66 in 06/19/2024 Weight 190 lbs 06/19/2024 BMI 30.66 kg/m2 06/19/2024 Patient Reported Normal Bloo d PressurePatient Reported Normal Temperature Encounters Encounter Location Date Provider Diagnosis [facility] [address] [place] [address] 06/19/2024 [facility] Assessments Encounter Date Diagnosis (ICD Code) Assessment Notes Treatment Notes Treatment Clinical Notes Section Notes 06/19/2024 AI TRIAGE SUGGESTED ASSESSMENTS: N76.0 - Acute vaginitis B96.89 - Other specified bacterial agents as the cause of diseases classified elsewhere N30.90 - Cystitis, unspecified without hematuria A64 - Unspecified sexually transmitted disease A74.9 - Chlamydial infection, unspecified - -- --- AI TRIAGE CLINICAL REASONING: Based on the patient's presentation, the differential diagnosis includes: - Bacterial vaginosis: Green vaginal discharge - Urinary tract infection (UTI): Blood in urine, urgency, frequency, and nocturia - Gonorrhea and Chlamydia: High-risk sexual behavior - Trichomoniasis: Green vaginal discharge - Pelvic inflammatory disease (PID): Blood in urine, high-risk sexual behavior - Urethritis: Blood in urine, high-risk sexual behavior Further evaluation and testing are warranted to confirm the diagnosis and initiate appropriate treatment. Plan Of Treatment No Information Progress Notes * Melissa AYALADOB:1965 (59 yo F)Acc No.[id number]:06/19/2024 IMPORT Patient: Melissa SOTO Provider: Campbell DEL ANGEL HELIX :1965 A ge:58 Y S ex:Female Date:06/19/2024 Phone: Address:[address] [place], [place] [phone] Subjective: * Chief Complaints: * 1 . Sexual Health / Urinary. 2. Patient requesting service from promotional campaign comp_healthcare. * HPI: T eleHealth Complaint History: 58 year-old female, presents with green vaginal discharge for a duration of 4 weeks. Medical History: Ankylosing spondylitis and no blunt injury of abdomen. Medications: A couple of times a week I'll take an aspirin if I think of it. Habits: High risk sexual behavior. Risk Factors: No recent exposure to allergen. * ROS: T he patient is also suffering from urgency to pass urine, increased frequency of urination, blood in urine and excessive nighttime urination. The patient denies the following: vaginal burning, vaginal irritation, unusual vaginal odor, vaginal discomfort, vaginal dryness, abnormal vaginal bleeding, fever, rash, itching, scaly skin, pelvic pain, pain during sexual intercourse, pain when passing urine, flank pain, chills, difficulty passing urine, late period, loss of bladder control, redness of eye, discharge from eye and bloody, or reddish colored urine. * Medical History: Mara argueta May 25, 2012. * Social History: T [...] as the cause of diseases classified elsewhere N30.90 - Cystitis, unspecified without hematuria A64 - Unspecified sexually transmitted disease A74.9 - Chlamydial infection, unspecified - - - --- AI TRIAGE CLINICAL REASONING: Based on the patient's presentation, the differential diagnosis includes: - Bacterial vaginosis: Green vaginal discharge - Urinary tract infection (UTI): Blood in urine, urgency, frequency, and nocturia - Gonorrhea and Chlamydia: High-risk sexual behavior - Trichomoniasis: Green vaginal discharge - Pelvic inflammatory disease (PID): Blood in urine, high-risk sexual behavior - Urethritis: Blood in urine, high-risk sexual behavior Further evaluation and testing are warranted to confirm the diagnosis and initiate appropriate treatment. Plan: * Treatment: * Billing Information: * Visit Code: * Procedure Codes: * Electronic signature of [facility]ON[facility]EL [facility] on 05/22/2025 at 07:06 AM EST Sign off status: Pending * Provider: Campbell DEL ANGEL [place] Date: 08/20/2023 Generated for Kris garnett/Bonnie/Magnoliasmitting on: 07/22/2024 07:06 AM EST History and Physical Notes * HPI (History of Present Illness) Category Sub-Category Detail Notes Category Not es TeleHealth Complaint History 58 year-old female, presents with green vaginal discharge for a duration of 4 weeks. Medical History: Ankylosing spondylitis and no blunt injury of abdomen. Medications: A couple of times a week I'll take an aspirin if I think of it. Habits: High risk sexual behavior. Risk Factors: No recent exposure to allergen.
--- OUTSIDE RECORDS SUMMARY | 2024-06-20 11:00 | XMS_ITS ---
Author Organization [facility] Address [address] [place] [address] Care Team Providers Care Java Web Application Developer Name Role Phone [facility] Unavailable [phone] REASON FOR VISIT Sexual Health / Urinary, Patient requesting service from promotional campaign [employer] Encounters Encounter Location Date Provider Diagnosis [facility] [address] [place] [address] 06/20/2024 [facility] Plan Of Treatment No Information Progress Notes * Melissa AYALADOB:1965 (59 yo F)Acc No.[id number]:06/20/2024 IMPORT Patient: Melissa SOTO Provider: Campbell [facility] [place] :1965 A ge:58 Y S ex:Female Date:06/20/2024 Phone: Address:[address] [place] [phone] Subjective: * Chief Complaints: * 1 . Sexual Health / Urinary. 2. Patient requesting service from promotional campaign [employer]. * HPI: T eleHealth Complaint History: 58 year-old female, presents with green vaginal discharge for a duration of 4 weeks. Medical History: Ankylosing spondylitis and Rbbb. Medications: I was taking levaquin and clindamycin and then I got a yeast infection so I was using the monistat and taking pamperin for cramps and bladder pain. Now have what I think is gonorrhea. Habits: No high risk sexual behavior. * ROS: T he patient is also suffering from vaginal irritation (severity mild), pelvic pain (severity moderate and duration 1 weeks), vaginal burning, unusual vaginal odor and vaginal discharge. The patient denies the following: vaginal discomfort, vaginal dryness, abnormal vaginal bleeding, curdlike vaginal discharge, fever, rash, scaly skin, itching and pain when passing urine. * Medical History: Objective: * Vitals: Assessment: Plan: * Treatment: * Billing Information: * Visit Code: * Procedure Codes: * Electronic signature of [facility] on 05/22/2025 at 07:06 AM EST Sign off status: Pending * Provider: Campbell DEL ANGEL [place] Date: 08/21/2023 Generated for Kris garnett/Bonnie/Gabbie on: 07/22/2024 07:06 AM EST History and Physical Notes * HPI (History of Present Illness) Category Sub-Category Detail Notes Category Not es TeleHealth Complaint History 58 year-old female, presents with green vaginal discharge for a duration of 4 weeks. Medical History: Ankylosing spondylitis and Rbbb. Medications: I was taking levaquin and clindamycin and then I got a yeast infection so I was using the monistat and taking pamperin for cramps and bladder pain. Now have what I think is gonorrhea. Habits: No high risk sexual behavior.
--- OUTSIDE RECORDS SUMMARY | 2024-06-24 03:45 | XMS_ITS ---
Author Organization [facility] Address [address] [place] [address] Care Team Providers Care Controls Engineer Name Role Phone [facility] Unavailable [phone] REASON FOR VISIT Sexual Health / Urinary Encounters Encounter Location Date Provider Diagnosis [facility] [address] [place] [address] 06/24/2024 [facility] Plan Of Treatment No Information Progress Notes * Melissa AYALADOB:1965 (59 yo F)Acc No.[id number]:06/24/2024 IMPORT Patient: Melissa SOTO Provider: Campbell [place] :1965 A ge:58 Y S ex:Female Date:06/24/2024 Phone: Address:[address] [place] [phone] Subjective: * Chief Complaints: * 1 . Sexual Health / Urinary. * Medical History: Objective: * Vitals: Assessment: Plan: * Treatment: * Billing Information: * Visit Code: * Procedure Codes: * Electronic signature of [facility] on 05/22/2025 at 07:07 AM EST Sign off status: Pending * Provider: Campbell DEL ANGEL [place] Date: 0 06/24/2024 Generated for Kris garnett/Bonnie/eTleoncioitting on: 07/22/2024 07:07 AM EST
--- OUTSIDE RECORDS SUMMARY | 2025-05-22 06:06 | XMS_ITS | Patient Health Record ---
Author Organization [facility] Address [address] [place] [address] Care Team Providers Care Neonatal Intensive Care Nurse Name Role Phone FIDELINA SANTOS MD Primary Care Provider Sesar Winters Unavailable Marlo Ulloa Unavailable [phone] Allergies Allergen (clinical drug ingredient) Drug/Non Drug Allergy documented on EMR Reaction Allergy Type Onset Date Status Information temporarily unavailable Simvastatin , Drug Allergy Active Results Component Value Reference Range Notes CT Abdomen, Pelvis w/ Contra st-11574 (Not yet reviewed by provider) Interpretation: Performing Lab: Notes/Report: gxd=[id number]=[email or web address] CT Abdomen, Pelvis w/ Contra st-98087 (Not yet reviewed by provider) Interpretation: Performing Lab: Notes/Report: See Below For Report [facility] CT utilizes automated exposure control, adjustment of the mA and Read See Below For Report Urinalysis--[id number] Reviewed date:05/24/2024 03:00:08 PM Interpretation: Performing Lab: Notes/Report: Specific gravity UA 1.025 Urine Nitrite - Urine Blood ++ Urine pH 5.0 Urine Glucose - Urine Leukocyte ++ Urine Protein - Urine Bilirubin + Urine Ketone - Urobilinogen 0.2 Colonoscopy, High Risk Carlose clara-[id number] Reviewed date:06/15/2024 10:37:39 AM Interpretation: Performing Lab: Notes/Report: Diagnostic Colonoscopy-[id number] Reviewed date:06/17/2024 11:22:33 AM Interpretation: Performing Lab: Notes/Report: Reason For Referral Reason open biopsy,, please 1st available Diagnosis 1 Supraclavicular mass (R22.2) Referral Organization [facility] Referring Provider First Name Caleb sampson Referring Provider Last Name Génesis Referring Provider Speciality Internal M edicine Referred Provider [facility] Referred Provider Specialty Surgery General Notes Meghan Carmichael 01:21:17 PM CDT > Faxed Dr Damon, Meghan Carmichael 02/28/2025 02:58:52 PM CDT > faxed to [facility] - Dr Damon does not do biopsy's anymore, Meghan Carmichael 03/01/2025 08:50:26 AM CDT > All Dr's in [place] will not take patient - faxing to [facility] 1st available, Yani Field 03/08/2025 08:29:15 AM CDT > PER FAX PT IS SCHEDULED 03-25 @ 1:30 WITH Emir BLACK Heidi 03/28/2025 08:15:30 AM CDT > PROGRESS NOTES IN REFERRAL FILE Referral Priority Routine Referral Appointment Date 03/25/2025 Reason Follow up Supraclavi cular mass 1st available please Diagnosis 1 Supraclavicular mass (R22.2) Referral Organization [facility] Referring Provider First Name Caleb sampson Referring Provider Last Name Génesis Referring Provider Speciality Internal edicine Referred Organization 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 > faxed Dr Bailey Referral Priority Routine Medications Medication SIG (Take, Route, Frequency, Duration) Notes Start Date End Date Status Doxycycline Not-Candy ng Pregabalin 100 MG Capsule 1 capsule Orally Once a day; Duration: 30 days 05/10/2025 Active ALPRAZolam 0.25 MG Tablet 1 tablet Orally every 8 hours prn; Duration: 10 days 05/10/2025 Active HYDROcodone-Acetamin ophen 5-325 MG Tablet 1 tablet as needed Orally every 6 hrs; Duration: 10 days 05/03/2025 Active Ibuprofen Ibuprofen 10/29/2017 Not-Takin g Vilazodone HCl 10 MG Tablet Take 1 tablet by mouth once daily with food; Duration: 30 Active SEROquel Seroquel 10/29/2017 Not-Takin g predniSONE 10 MG Tablet 4 tablets once a day for 3 days, 3 tablets once a day for 3 days, 2 tablets once a day for 3 days, 1 tablet once a day for 3 days Orally; Duration: 12 days 04/26/2025 Active Ondansetron HCl 4 MG Tablet 1 tablet Orally every 8 hours; Duration: 5 days as needed for nausea 12/26/2021 Not-Taking Cymbalta 30 MG Capsule Delayed Release Particles 1 capsule Orally Once a day; Duration: 30 day(s) 12/26/2021 Not-Taking Ondansetron HCl 4 MG Tablet 1 tablet Orally Once a day; Duration: 30 days 02/28/2025 Active Metoprolol Tartrate 25 MG Tablet 1 tablet with food Orally Twice a day Not-Taking Aspirin 1000 MG / Caffeine 65 MG Oral Powder [BC Arthritis] Aspirin 1000 MG / Caffeine 65 MG Oral Powder [BC Arthritis] 10/29/2017 Not-Taking Fluticasone Propionate 50 MCG/ACT Suspension 1 spray in each nostril Nasally Twice a day Not-Taking Ondansetron 4 MG Tablet Disintegrating Oral Ondansetron 4 MG Disintegrating Tablet 12/29/2017 Not-Taking Macrobid 100 MG Capsule 1 capsule with food Orally every 12 hrs Not-Taking Hydrocodone Hydrocodone 10/29/2017 Not-T aking Bactrim DS 800-160 MG Tablet 1 tablet Orally twice a day Not-Taking gabapentin 100 MG Oral Capsule gabapentin 100 MG Oral Capsule 10/29/2017 Not-Taking Benzonatate 100 MG Capsule 1 capsule Orally Three times a day Not-Taking Ezetimibe 10 MG Tablet 1 tablet Orally Once a day Not-Taking Immunizations Vaccine Route Administration Date Status Comme nts Flucelvax Trivalent, Syringe 0.5 mL, PF Unknown 04/26/2025 Refused Influenza (whole), CPT 25244 Inactive Unknown 10/29/2017 Administered Influenza (whole), CPT 62953 Inactive Unknown 03/30/2018 Administered Social History Tobacco [...] Tobacco user e-cigarette Section Notes: unknown unknown 05/24/24 CIME Dep/tob - 02/22/25 unknown unknown unknown 05/24/24 05/24/24 CIME Dep/tob - 02/22/25 05/24/24 CIME Dep/tob - 02/22/25 05/24/24 CIME Dep/tob - 02/22/25 05/24/24 CIME Dep/tob - 02/22/25 Problems Problem Type SNOMED Code ICD Code Onset Dates Problem Status W/U Status Risk Notes Problem Information temporarily unavailable Absence of both cervix and uterus, 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) 04/25/20 25 Active confirmed Problem Information temporarily unavailable Nicotine dependence, cigarettes, uncomplicated (F17.210) Active confirmed Problem Information temporarily unavailable PRIETO (dyspnea on exertion) (R06.09) Active confirmed Problem Information temporarily unavailable Thyroid nodule (E04.1) Active confirmed Problem Information temporarily unavailable RUQ pain (R10.11) Active confirmed Problem Information temporarily unavailable Degenerative disc disease, cervical (M50.30) Active confirmed Problem Information temporarily unavailable UTI symptoms (R39.9) Active confirmed Problem Information temporarily unavailable Family history of colon cancer (Z80.0) Active confirmed Problem Information temporarily unavailable Tobacco abuse (Z72.0) Active confirmed Problem Information temporarily unavailable Sacroiliitis (M46.1) Active confirmed Problem Information temporarily unavailable Degenerative disc disease, lumbar (M51.36) Active confirmed Problem Information temporarily unavailable Unexplained weight loss (R63.4) Active confirmed Problem Information temporarily unavailable Night sweats (R61) Active confirmed Problem Information temporarily unavailable Supraclavicular mass (R22.2) Active confirmed Problem Information temporarily unavailable Arm paresthesia, left (R20.2) Active confirmed Problem Information temporarily unavailable Arm paresthesia, right (R20.2) Active confirmed Problem Information temporarily unavailable Degenerative disc disease, thoracic (M51.34) Active confirmed Problem Information temporarily unavailable Bilateral leg paresthesia (R20.2) Active confirmed Problem Information temporarily unavailable 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) Active confirmed Problem Information temporarily unavailable Primary hypertension (I10) Active confirmed Vital Signs Heart Rate 92 /min 05/10/2025 Temperature 98.3 degrees Fahrenheit 05/10/2025 Oximetry 97 % 05/10/2025 Blood pressure diastolic 78 mm Hg 05/10/2025 Height-cm 172.72 cm 05/10/2025 Weight-kg 85.73 kg 05/10/2025 Height 68 in 05/10/2025 Blood pressure systolic 122 mm Hg 05/10/2025 Weight 189 lbs 05/10/2025 BMI 28.73 kg/m2 05/10/2025 Encounters Encounter Location Date Provider Diagnosis [facility] [address] [address] 05/24/2024 Sesar Capps UTI symptoms R39.9 ; Family history of colon cancer Z80.0 and Depression screen Z13.31 [facility] [address] [place] [address] 06/09/2024 Sesar Capps Family history of colon cancer Z80.0 and Encounter for screening for malignant neoplasm of colon Z12.11 [facility] [address] [address] 02/22/2025 Sesar Capps Supraclavicular mass R22.2 ; Nicotine dependence, cigarettes, uncomplicated F17.210 ; Primary hypertension I10 ; Tobacco abuse Z72.0 and Depression screen Z13.31 [facility] [address] [address] 02/28/2025 Sesar Capps Supraclavicular mass R22.2 and Depression screen Z13.31 [facility] [address] [address] 03/14/2025 Sesar Capps Aching headache R51.9 ; Abnormal finding of kidney R39.9 ; Incontinence in female R32 ; Depression screen Z13.31 and Supraclavicular mass R22.2 [facility] [address] [address] 04/26/2025 Sesar Capps Acute bilateral low back pain without sciatica M54.50 ; Supraclavicular mass R22.2 ; Absence of both cervix and uterus, acquired Z90.710 ; Primary hypertension I10 ; Encounter for immunization Z23 and Immunization not carried out because of patient refusal Z28.21 [facility] [address] [address] 05/10/2025 Sesar Capps Primary hypertension I10 ; RUQ pain R10.11 ; Unexplained weight loss R63.4 ; Night sweats R61 ; Supraclavicular mass R22.2 ; Depression screen Z13.31 ; Cigarette nicotine dependence without complication F17.210 and Uses electronic cigarette daily F17.290 [facility] [address] [address] 06/03/2024 Sesar Capps [facility] [address] [address] 04/26/2025 Sesar Capps Supraclavicular mass R22.2 [facility] [address] [place] [address] 05/12/2025 Sesar Capps Abnormal finding of kidney R39.9 [facility] [address] [place] [address] 06/19/2024 Marlo Ulloa [facility] [address] [place] [address] 07/04/2024 Sesar Capps [facility] [address] [place] [address] 07/06/2024 Sesar [facility] [address] [place] [address] 02/24/2025 Sesar [facility] [address] [place] [address] 02/24/2025 Sesar [facility] [address] [place] [address] 03/01/2025 Sesar [facility] [address] [place] [address] 03/02/2025 Sesar [facility] [address] [place] [address] 03/07/2025 Sesar Capps [facility] [address] [place] [address] 03/09/2025 Sesar Capps [facility] [address] [place] [address] 03/09/2025 Sesar [facility] [address] [place] [address] 03/11/2025 Sesar [facility] [address] [place] [address] 03/11/2025 Sesar [facility] [address] [place] [address] 03/11/2025 Sesar Capps [facility] [address] [place] [address] 03/26/2025 Sesar Capps [facility] [address] [place] [address] 03/29/2025 Sesar Capps [facility] [address] [place] [address] 04/06/2025 Sesar Capps [facility] [address] [place] [address] 04/06/2025 Sesar Capps Supraclavicular mass R22.2 [facility] [address] [place] [address] 04/06/2025 Sesar Capps Depression screen Z13.31 [facility] [address] [place] [address] 04/10/2025 Sesar Capps [facility] [address] [place] [address] 05/03/2025 Sesar Capps [facility] [address] [place] [address] 05/03/2025 Sesar Capps Assessments Encounter Date Diagnosis (ICD Code) Assessment Notes Treatment Notes Treatment Clinical Notes Section Notes 05/12/2025 Abnormal finding of kidney (ICD-10 - R39.9) 05/10/2025 RUQ pain (ICD-10 - R10.11) 05/10/2025 Primary hypertension (ICD-10 - I10) 02/28/2025 Supraclavicular mass (ICD-10 - R22.2) 05/24/2024 UTI symptoms (ICD-10 - R39.9) 05/24/2024 Family history of colon cancer (ICD-10 - Z80.0) -x-- to be completed at [facility] ---to be completed at [facility] ---to be completed at [facility] ---to be completed at [facility] 04/26/2025 Supraclavicular mass (ICD-10 - R22.2) 04/26/2025 Supraclavicular mass (ICD-10 - R22.2) u 04/26/2025 Acute bilateral low back pain without sciatica (ICD-10 - M54.50) u 04/06/2025 Depression screen (ICD-10 - Z13.31) 04/06/2025 Supraclavicular mass (ICD-10 - R22.2) 03/14/2025 Aching [...] Abnormal finding of kidney (ICD-10 - R39.9) 02/22/2025 Nicotine dependence, cigarettes, uncomplicated (ICD-10 - F17.210) I spent 3 minutes on tobacco cessation counseling. Patient is not willing to attempt cessation. I will continue to counselor manager and educate patient in future appointments about the harm and risks of tobacco abuse. I have discussed different medication options with patient today including chantix, wellbutrin, patches, gum and the process of slowly cutting back on nicotine. 06/09/2024 Encounter for screening for malignant neoplasm of colon (ICD-10 - Z12.11) 06/09/2024 Family history of colon cancer (ICD-10 - Z80.0) 02/22/2025 Supraclavicular mass (ICD-10 - R22.2) 02/22/2025 Primary hypertension (ICD-10 - I10) Pt advised to take meds as prescribed, exercise as tolerated, and monitor BP as directed. If symptoms develop, parameters out of range, or any distress contact clinic or utilize ER. 03/14/2025 Incontinence in female (ICD-10 - R32) 04/26/2025 Absence of both cervix and uterus, acquired (ICD-10 - Z90.710) u 02/28/2025 Depression screen (ICD-10 - Z13.31) 05/24/2024 Depression screen (ICD-10 - Z13.31) 05/10/2025 Unexplained weight loss (ICD-10 - R63.4) 05/10/2025 Night sweats (ICD-10 - R61) 04/26/2025 Primary hypertension (ICD-10 - I10) u 03/14/2025 Depression screen (ICD-10 - Z13.31) 02/22/2025 Tobacco abuse (ICD-10 - Z72.0) 02/22/2025 Depression screen (ICD-10 - Z13.31) 03/14/2025 Supraclavicular mass (ICD-10 - R22.2) 04/26/2025 Encounter for immunization (ICD-10 - Z23) u 05/10/2025 Supraclavicular mass (ICD-10 - R22.2) 05/10/2025 Depression screen (ICD-10 - Z13.31) 04/26/2025 Immunization not carried out because of patient refusal (ICD-10 - Z28.21) u 05/10/2025 Cigarette nicotine dependence without complication (ICD-10 - F17.210) 05/10/2025 Uses electronic cigarette daily (ICD-10 - F17.290) 06/09/2024 Other see scanned document from [facility] in patients documents. Plan Of Treatment Pending Test Test Name Order Date Sedimentation Rate [id number] 12/23/2023 CRP [id number] 12/23/2023 Cervical Spine w/ Obl/Flex/Ext Comp-7205 2 12/25/2021 CT Abdomen, Pelvis w/ Contrast-38654 CT Abdomen, Pelvis w/ Contrast-40273 Lumbosacral Spine Comp w/ Bending-51837 12/25/2021 MRI Cervical Spine w/o Cont-79556 2021 MRI Lumbar Spine w/o Cont-11294 12/26/19 MRI Thoracic Spine w/o Cont-59904 2021 Thoracic Spine AP/Lat-15160 12/25/2021 Next Appt Details Provider Name:Sesar Capps, 05/24/2025 01:20:00 PM, [address] [place] [address], [phone], Insurance Providers Payer Name Payer Address Payer Phone Subscriber Number Group Number Insured Name Patient Relationship to Insured Coverage Start Date Coverage End Date [facility] Medicare Advantage PPO [address] [address] [place] [address] [id number] BERT BUCK Self - patient is the insured [place] [address] [place] [address] [id number] BERT BUCK Self - patient is the insured 4 4 Medications Administered Medication Instructions Date of Administration Dosage Notes dexAMETHasone 04/26/2025 10 mg Medical (General) History Medical History History ICD [...]
--- OUTSIDE RECORDS SUMMARY | 2025-05-22 06:06 | XMS_ITS | Clinical Summary ---
Author Organization [facility] Address [address] 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
--- OUTSIDE RECORDS SUMMARY | 2025-05-22 06:07 | XMS_ITS | Patient Health Record ---
Author Organization [facility] Address [address] [place] [address] Care Team Providers Care Bull Rider Name Role Phone [facility] Unavailable [phone] Allergies No Known Allergies Reason For Referral [...] Status Risk Notes Problem Information temporarily unavailable Cold sore (B00.1) Active confirmed Assessments Encounter [...] SIMPLEX VIRUS CULTURE W/RFL TO EDER SALOMON (7951) 04/13/2024 Insurance Providers Payer Name Payer Address Payer Phone Subscriber Number Group Number Insured Name Patient Relationship to Insured Coverage Start Date Coverage End Date [facility] [address] [address] [place] [address] [id number] Melissa Ayala Self - patient is the insured
[2025-05-22 06:19] VITALS: BP 141/60; PULSE 81; RESP 17; TEMP 36.8; O2SAT 95
--- NOTE | 2025-05-22 06:28 | ED_ITS ---
HPI - Abdominal Pain 2 General: Chief Complaint: Abdominal Pain Stated Complaint: abdomen pain Time Seen by Provider: 05/22/25 05:55 Source: patient and EMS Mode of arrival: EMS Limitations: no limitations History of Present Illness: 59-year-old female who states that she h as been having abdominal pain has been severe in nature started at midnight states pain is diffuse rates it a 9 out of 10. She has had vomiting along with some constipation. She denies any fevers denies any worse or improving factors. Related Data Previous Rx's ?Medication ?Instructions ?Recorded sulfamethoxazole 800 1 tab PO BID 10 days #20 tab s 02/19/25 mg-trimethoprim 160 mg tablet (Bactrim DS) hydrocodone 5 mg-acetaminophen 325 1 tab PO Q6H PRN pa in #14 tabs 02/25/25 mg tablet ciprofloxacin HCl 500 mg tablet 500 mg PO BID #14 tabs 05/22/25 (Cipro) hydrocodone 5 mg-acetaminophen 325 1 tab PO Q6H PRN pa in #14 tabs 05/22/25 mg tablet metronidazole 500 mg tablet 500 mg PO Q8H 7 days #21 t abs 05/22/25 ondansetron 4 mg disintegrating 4 mg PO Q6H PRN nausea and 05/22/25 tablet vomiting #14 tabs Allergies Allergy/AdvReac Type Severity Reaction Status Date / Time acetaminophen (From Allergy Nausea Verified 04/21/25 19:54 Darvocet-N) propoxyphene (From Allergy Nausea Verified 04/21/25 19:54 Darvocet-N) simvastatin Allergy Hives Verified 04/21/25 19:54 Review of Systems 2 GI: Reports: abdominal pain [facility] ED 2 PFSH: Social History Smoking and tobacco/nicotine status: current every day tobacco/nicotine user cigarettes Alcohol intake: never Substance/Drug Use: never Physical Exam 2 Const: COMMON NORMALS: no acute distress, patient oriented x3 and healthy appearing HENMT: COMMON NORMALS: normocephalic and atraumatic HEAD & SCALP: n ormocephalic and atraumatic Neck/C-Spine: COMMON NORMALS: full ROM and supple Chest: COMMONS NORMALS: normal inspection of the chest Resp: COMMON NORMALS: normal respiratory effort, No retractions, No use of accessory muscles and clear to auscultation bilaterally AUSCULTATION: clear to auscultation bilaterally Cardio: COMMON NORMALS: regular rate, regular rhythm and No murmurs present (Cardio) RATE: regular rate RHYTHM: regular rhythm GI: COMMON NORMALS: Normal to inspection, nondistended, normoactive bowel sounds present, Soft to palpation and no masses PALPATION: Yes Soft to palpation OTHER: diffuse tenderness Extremity: COMMON NORMALS: normal to inspection and full ROM Neuro: COMMON NORMALS: patient oriented x3, moves all extremities and no focal motor deficits Psych: COMMON NORMALS: mental status grossly normal, Normal thought process present and cooperative THOUGHT PROCESS: Normal thought process present Skin: COMMON NORMALS: no rashes or lesions noted and no wounds GENERAL SKIN EXAM: no rashes or lesions noted Course 2 Vital Signs: Vital signs: Vital Signs Temperature 98.3 F 05/22/25 06:19 Pulse Rate 88 05/22/25 07:02 Respiratory Rate 14 05/22/25 07:02 Blood Pressure 136/69 05/22/25 07:02 Pulse Oximetry 96 05/22/25 07:02 Oxygen Delivery Me thod Room Air 05/22/25 07:02 MDM - Abdominal Pain Medical Decision Making 59-year-old female presents here with diffuse abdominal pain. Differential includes appendicitis, diverticulitis, pancreatitis did CT patient here she has colitis on CAT scan shows no signs appendicitis diverticulitis or pancreatitis. She has a mildly elevated white count she is afebrile here no signs of sepsis her pain has improved she has had no vomiting here we will prescribe her Cipro Flagyl along with hydrocodone and Zofran. She is to follow-up with PCP in 3 to 5 days return if worsening she understands agrees to plan. Medical Records I reviewed the patient's medical records. Lab Data I reviewed the patient's lab results. 05/22/25 06:39 05/22/25 06:39 Labs/Radiology: Radiology Impressions Abdomen/Pelvis CT 05/22/25 06:28 IMPRESSION: 1. Findings suggest pancolitis. 2. Hepatomegaly. 3. Right lower lobe 6 mm nodule (03/23). For patients at low risk (minimal or absent history of smoking and of other known risk factors), recommend CT Chest at 6-12 months, then consider CT Chest at 18-24 months. For patients at high risk (history of smoking or of other known risk factors), recommend CT Chest at 6-12 months, then CT Chest at 18-24 months. (Reference: Hernandez) COMMENTS: Consistent with the [employer]'s Incidental Findings Committee white paper (J Am Vivek Radiol 2018): Any incidental renal lesion less than 1 cm or classified as too small to characterize, or any incidental cystic renal lesion characterized as simple-appearing, is likely benign. No follow-up imaging is recommended for these lesions per consensus recommendations based on imaging criteria. REFERENCES: Hernandez Terry, et al. Guidelines for Management of Incidental Pulmonary Nodules Detected on CT Images: From the Fleischner Society 2017. Radiology. 2017;284(1):228-243. Laboratory Results WBC 16.93 10^3/uL (3.29-11.43) H 05/22/25 06:39 RBC 5.05 10^6/uL (3.85-5.65) 05/22/25 06:39 Hgb 15.60 g/dL (11.27-16.99) 05/22/25 06:39 Hct 48.7 % (36-47) H 05/22/25 06:39 MCV 96.4 fl (85-98) 05/22/25 06:39 MCH 30.9 pg (27-33) 05/22/25 06:39 MCHC 32.0 g/dL (30-55) 05/22/25 06:39 RDW 13.0 % (12.1-15.1) 05/22/25 06:39 Plt Count 309 10^3/cmm (157-399) 05/22/25 06:39 MPV 10.4 fL (7.4-10.4) 05/22/25 06:39 Neut % (Auto) 84.8 % 05/22/25 06:39 Lymph % (Auto) 10.8 % 05/22/25 06:39 [place] % (Auto) 3.5 % 05/22/25 06:39 Eos % (Auto) 0.1 % 05/22/25 06:39 Baso % (Auto) 0.5 % 05/22/25 06:39 Neut # (Auto) 14.35 10^3/uL (1.8-7.7) H 05/22/25 06:39 Lymph # (Auto) 1.8 10^3/uL (0.8-4.8) 05/22/25 06:39 [place] # (Auto) 0.6 10^3/uL (0.2-0.9) 05/22/25 06:39 Eos # (Auto) 0.0 10^3/uL (0.0-0.8) 05/22/25 06:39 Baso # (Auto) 0.1 10^3/uL (0.0-0.1) 05/22/25 06:39 Nucleated RBC % (auto) 0 % 05/22/25 06:39 Nucleated RBCs # 0.0 /100WBC 05/22/25 06:39 Sodium 137 mmol/L (136-145) 05/22/25 06:39 Chloride 101 mmol/L (98-107) 05/22/25 06:39 Carbon Dioxide 21 mmol/L (22-29) L 05/22/25 06:39 BUN 16 mg/dL (6-20) 05/22/25 06:39 Creatinine 0.8 mg/dL (0.5-0.9) 05/22/25 06:39 GFR Calculation 73.9 mL/min (90-130) L 05/22/25 06:39 Glucose 153 mg/dL (65-115) H 05/22/25 06:39 Calculated Osmolality 288 mOsm/kg (285-295) 05/22/25 06:39 Calcium 10.4 mg/dL (8.5-10.5) 05/22/25 06:39 Total Bilirubin 0.2 mg/dL (0.15-1.2) 05/22/25 06:39 ALT 26 U/L (0-33) 05/22/25 06:39 Alkaline Phosphatase 119 U/L (35-105) H 05/22/25 06:39 C-Reactive Protein 3.1 mg/L (0.0-4.9) 05/22/25 06:39 Total Protein 8.2 g/dL (6.6-8.7) 05/22/25 06:39 Albumin 4.5 g/dL (3.5-5.2) 05/22/25 06:39 Globulin 3.7 g/dL (1.3-4.6) 05/22/25 06:39 Lipase 27 U/L (13-60) 05/22/25 06:39 All radiology interpretation(s) finalized by discharge Discharge Plan Discharge Patient Disposition: Home Clinical Impression: Colitis Condition: Stable Prescriptions: New hydrocodone-acetaminophen 5-325 mg tablet 1 tab PO Q6H PRN (Reason: pain) Qty: 14 0RF metronidazole 500 mg tablet 500 mg PO Q8H 7 Days Qty: 21 0RF ciprofloxacin HCl [Cipro] 500 mg tablet 500 mg PO BID Qty: 14 0RF ondansetron 4 mg tablet,disintegrating 4 mg PO Q6H PRN (Reason: nausea and vomiting) Qty: 14 0RF No Action sulfamethoxazole-trimethoprim [Bactrim DS] 800-160 mg tablet 1 tab PO BID 10 Days Qty: 20 0RF hydrocodone-acetaminophen 5-325 mg tablet 1 tab PO Q6H PRN (Reason: pain) Qty: 14 0RF Discharge Orders: Discharge ED (Routine); Ordered 05/22/25 Ordered By: Tj Brewer Referrals: Balatzar Capps MD [Primary Care Provider, Internal Medicine] - 1-3 days Discharge Diet: Advance as tolerated Discharge Activity: Resume usual activity Patient Instructions: Colitis (ED), Opioid Safety Print Language: Burkinan Coding Level of Care Code ED Parole Officer for Ryan Giang
--- NOTE | 2025-05-22 06:28 | CTR_ITS ---
PROCEDURE INFORMATION: Exam: CT Abdomen And Pelvis With Contrast Exam date and time: 05/22/2025 6:49 AM Age: 59 years old Clinical indication: Constipation and nausea and vomiting; Abdominal pain; Generalized; C/O abd pain with n/v and constipation. TECHNIQUE: Imaging protocol: Computed tomography of the abdomen and pelvis with contrast. Radiation optimization: All CT scans at this facility use at least one of these dose optimization techniques: automated exposure control; mA and/or kV adjustment per patient size (includes targeted exams where dose is matched to clinical indication); or iterative reconstruction. Contrast material: OMNI 350; Contrast volume: 100 ml; Contrast route: INTRAVENOUS (IV); COMPARISON: CR XR chest 2V* [id number] 06/10/2019 11:54 AM RADIATION DOSE METRICS: Total DLP (mGy-cm): 1588.05 FINDINGS: Lungs: Right lower lobe 6 mm nodule (03/23). Liver: 16.8 cm enlarged liver. Gallbladder and biliary ducts: Normal. No calcified stones. No ductal dilation. Pancreas: Normal. No ductal dilation. Spleen: Normal. No splenomegaly. Adrenal glands: Normal. No mass. Kidneys and ureters: Left renal simple cysts measuring up to 1.4 x 0.8 cm. Stomach and bowel: There is diffuse colonic wall thickening. No small bowel loop dilatation. Appendix: Post appendectomy changes. Intraperitoneal space: Unremarkable. No free air. No significant fluid collection. Vasculature: Mild calcified atherosclerotic changes are seen throughout the abdominal aorta. Lymph nodes: Unremarkable. No enlarged lymph nodes. Urinary bladder: Unremarkable as visualized. Reproductive: Post hysterectomy changes are seen. Bones/joints: Unremarkable. No acute fracture. Soft tissues: Unremarkable. CT/CT abdomen pelvis w con* [id number] IMPRESSION: 1. Findings suggest pancolitis. 2. Hepatomegaly. 3. Right lower lobe 6 mm nodule (03/23). For patients at low risk (minimal or absent history of smoking and of other known risk factors), recommend CT Chest at 6-12 months, then consider CT Chest at 18-24 months. For patients at high risk (history of smoking or of other known risk factors), recommend CT Chest at 6-12 months, then CT Chest at 18-24 months. (Reference: Hernandez) COMMENTS: Consistent with the [employer]'s Incidental Findings Committee white paper (J Am Vivek Radiol 2018): Any incidental renal lesion less than 1 cm or classified as too small to characterize, or any incidental cystic renal lesion characterized as simple-appearing, is likely benign. No follow-up imaging is recommended for these lesions per consensus recommendations based on imaging criteria. REFERENCES: Hernandez Terry, et al. Guidelines for Management of Incidental Pulmonary Nodules Detected on CT Images: From the Fleischner Society 2017. Radiology. 2017;284(1):228-243.
[2025-05-22 06:40] VITALS: RESP 17; O2SAT 95
[2025-05-22] MEDS: morphine 4 mg/mL SDV 1 mL IVP (06:40)
[2025-05-22] MEDS: ondansetron 2 mg/ML SDV 2 mL 4 MG IVP (06:40)
[2025-05-22 06:43] LABS: Hematocrit 48.7 % (36-47); Hemoglobin 15.60 g/dL (11.27-16.99); Mean Corpuscular HGB Conc 32.0 g/dL (30-55); Mean Corpuscular Hemoglobin 30.9 pg (27-33); Mean Corpuscular Volume 96.4 fl (85-98); Nucleated Red Blood Cells % 0 %; Platelet Count 309 10^3/cmm (157-399); Red Blood Count 5.05 10^6/uL (3.85-5.65); White Blood Count 16.93 10^3/uL (3.29-11.43)
[2025-05-22] MEDS: iohexol 350 mg/mL 500 mL Btl (per mL) IV (06:55)
[2025-05-22 07:02] VITALS: BP 136/69; PULSE 88; RESP 14; O2SAT 96
[2025-05-22 07:04] LABS: Alanine Aminotransferase 26 U/L (0-33); Albumin Level 4.5 g/dL (3.5-5.2); Alkaline Phosphatase 119 U/L (35-105); Blood Urea Nitrogen 16 mg/dL (6-20); Calcium 10.4 mg/dL (8.5-10.5); Carbon Dioxide 21 mmol/L (22-29); Chloride 101 mmol/L (98-107); Globulin 3.7 g/dL (1.3-4.6); Glucose 153 mg/dL (65-115); Lipase 27 U/L (13-60); Osmolality Calculated 288 mOsm/kg (285-295); Sodium 137 mmol/L (136-145); Total Protein 8.2 g/dL (6.6-8.7)
[2025-05-22 07:32] VITALS: BP 140/77; PULSE 81; O2SAT 96
[2025-05-22 07:58] LABS: Anion Gap 19.3 (5-19); Aspartate Amino Transferase 21 U/L (0-32); Potassium 4.3 mmol/L (3.5-5.1)
== END 2025-05-22 07:33 | disposition home or self-care (01) ==
PROVIDERS: Emergency Medicine; Emergency Provider Emergency Medicine; PCP Internal Medicine
DX: K52.9 Noninfective gastroenteritis and colitis, unspecified (principal); F17.210 Nicotine dependence, cigarettes, uncomplicated
CPT/HCPCS: 36415; 74177; 80053; 83690; 85025; 86140; 96361; 96374; 96375; 99285; J2270; J2405; J7030